=== PATIENT | male | born 1980 | race Caucasian/White ===

== ENCOUNTER 2017-02-28 04:36 | Emergency (ER) | payer OTHER ==
[~2017-02-28] VITALS: Ht 182.9 cm; Wt 122.8 kg
[~2017-02-28 04:36] MED LIST: IBUP-1050 PO
[2017-02-28 04:41] VITALS: TEMP 36.8; Ht 182.9 cm; Wt 122.8 kg
[2017-02-28] MEDS ORDERED: IBUPROFEN 600 MG TAB PO STA (05:06)
[2017-02-28] MEDS ORDERED: HYDROCODONE/ACETAMOPHEN 5/325MG TAB PO STA (05:06)
[2017-02-28 06:06] VITALS: BP 144/94; PULSE 73; O2SAT 94
--- NOTE | 2017-02-28 06:06 | EMERGENCY ROOM VISIT NOTE ---
History Report prepared by Jovitaibomkar: Jacob Mott Under the Supervision of: Dr. Oma Florian M.D. First contact with patient: 04:46 Chief Complaint: BACK PAIN Stated Complaint: STABBING PAIN IN MIDDLE OF BACK LASTING > 24 HRS History of Present Illness The patient is a 36 year old male who presents to the Emergency Room with complaints of worsening upper back pain beginning two days ago. He describes his pain as "stabbing". He has used a heating pad, cooling pad, and Ibuprofen for his symptoms but has seen no relief. The patient notes that he rode his bike to work recently for the first time in a long time. 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 He denies any shortness of breath. Source of History: patient Onset: Two days ago Position: back (upper) Quality: stabbing Timing: worsening Associated Symptoms: No SOB Review of Systems See HPI for pertinent positives & negatives. A total of 10 systems reviewed and were otherwise negative. Past Medical & Surgical Medical Problems: (1) Bipolar II disorder (2) Migraine (3) Pain, dental Family History Hypertension Social History Smoking Status: Former Smoker Alcohol Use: none Drug Use: none Marital Status: Housing Status: lives with significant other Occupation Status: unemployed Current/Historical Medications Scheduled PRN Ibuprofen (Advil), 800 MG PO TID PRN for Pain Allergies Coded Allergies: Onion (Verified Allergy, Severe, ANAPHYLAXIS, 02/28/17) Physical Exam Vital Signs Date Time Temp Pulse Resp B/P (MAP) Pulse Ox O2 Delivery O2 Flow Rate FiO2 02/28/17 06:06 73 18 144/94 94 Room Air 02/28/17 05:22 88 20 155/103 94 Room Air 02/28/17 04:41 36.8 81 20 177/106 97 Room Air Physical Exam Vital signs reviewed. General: Well-appearing male, in no significant distress. HEENT: No scleral icterus, PERRLA, neck supple. Atraumatic. Cardiovascular: Regular rate and rhythm, no extra sounds. Pulmonary: Clear to auscultation bilaterally, normal work of breathing. Abdomen: Soft, nontender, nondistended, positive bowel sounds. Musculoskeletal: Atraumatic, no peripheral edema. Mild tenderness to palpation over the mid-lower thoracic spine. No step off or deformity Neurologic: Patient awake alert and oriented x 3, full strength in all 4 extremities. Cranial nerves 2 through 12 grossly intact. Skin: Warm, dry, no rash Medical Decision & Procedures ER Provider Diagnostic Interpretation: Three View Thoracic Spine X-ray interpreted by me: No fracture. No malalignment. Medications Administered Medications (Trade) Dose Ordered Sig/Jacqueline Route Start Time Stop Time Status Last Admin Dose Admin Ibuprofen (Motrin Tab) 600 mg NOW STAT PO 02/28/17 05:06 02/28/17 05:08 DC 02/28/17 05:20 600 MG Acetaminophen/ Hydrocodone Bitart ([place] 5/325 Tab) 1 tab NOW STAT PO 02/28/17 05:06 02/28/17 05:08 DC 02/28/17 05:20 1 TAB ED Course 0456: Past medical records reviewed. The patient was evaluated in room B12B. A complete history and physical examination was performed. 0506: Ordered [place] 5/325 Tab PO, Motrin Tab 600 mg PO. 0600: Upon reevaluation, the patient appeared to have improvement of his symptoms. I discussed findings with him. He verbalized agreement of the treatment plan. The patient was discharged home. Medical Decision Differential diagnosis: Etiologies such as musculoskeletal, disc herniation, fracture, aortic disease, metastatic disease, cord compression, discitis, infection, renal colic, gastrointestinal, acute exacerbation of chronic back pain, sciatica, cauda equina, as well as others were entertained. This pt was evaluated and appeared to be in no distress. Pt was given po norco and ibuprofen. XR were performed and reveal no fx or malalignment. Pt was advised to use warm compresses and gentle stretching for relief. He will f/u with his PCP this week for reevaluation. Pt will return to the ED for worsening of symptoms or any medical concerns. Medication Reconcilliation Current Medication List: was personally reviewed by me Blood Pressure Screening Patient's blood pressure: Elevated blood pressure Blood pressure disposition: Referred to PCP Impression Primary Impression: Thoracic back pain Scribe Attestation The scribe's documentation has been prepared under my direction and personally reviewed by me in its entirety. I confirm that the note above accurately reflects all work, treatment, procedures, and medical decision making performed by me. Departure Information Dispostion Home / Self-Care Referrals No Doctor, Assigned (PCP) Forms HOME CARE DOCUMENTATION FORM, IMPORTANT VISIT INFORMATION Patient Instructions My [facility] Additional Instructions Diagnosis: Thoracic back pain Ibuprofen 600 mg every 6 hours as needed for pain with food. Warm compresses and gentle stretching. Follow up with your doctor this week for reevaluation. Return to the ED for worsening of symptoms or any medical concerns.
--- NOTE | 2017-02-28 07:26 | DIAGNOSTIC IMAGING REPORT ---
THORACIC SPINE 3 VIEWS HISTORY: thoracic back pain COMPARISON: None. FINDINGS: There is no fracture. No subluxation. Disc spaces are preserved. IMPRESSION: No fracture or subluxation within the thoracic spine. Electronically signed by: Timur Callejas M.D. 02/28/2017 7:25 AM Dictated Date/Time: 02/28/2017 7:22 AM
== END 2017-02-28 06:12 | disposition home or self-care (01) ==
LOC: C.EDB 04:38
DX: M54.6 Pain in thoracic spine (principal); F31.9 Bipolar disorder, unspecified; Z87.891 Personal history of nicotine dependence; Z91.018 Allergy to other foods; Z82.49 Family history of ischemic heart disease and other diseases of the circulatory system

== ENCOUNTER 2017-07-21 15:44 | Observation (INO) | payer OTHER ==
[~2017-07-21] VITALS: Ht 182.9 cm; Wt 120.2 kg
[2017-07-21] MEDS ORDERED: SODIUM CHLORIDE 0.9% 1000ML 1,000 ML IV STA (15:58)
[2017-07-21] MEDS ORDERED: OPTIRAY 320 IV PRN (16:15)
[2017-07-21 16:40] LABS: BASO % 0.3 %; BASO ABS # 0.02 K/uL (0-0.2); EOS % 0.8 %; EOS ABS # 0.05 K/uL (0-0.5); HEMATOCRIT 42.4 % (42-52); IG# 0.03 K/uL (0.00-0.02); LYMPH % 30.8 %; LYMPH ABS # 1.98 K/uL (1.2-3.4); MEAN CELL VOLUME 86.4 fL (80-100); MEAN CORPUSCULAR HEMOGLOBIN 30.5 pg (25-34); MEAN CORPUSCULAR HGB CONC 35.4 g/dl (32-36); MEAN PLATELET VOLUME 10.9 fL (7.4-10.4); MONO % 7.5 %; MONO ABS # 0.48 K/uL (0.11-0.59); NEUT % 60.1 %; NEUT ABS # 3.86 K/uL (1.4-6.5); PLATELET COUNT 224 K/uL (130-400); RED CELL DISTRIBUTION WIDTH CV 12.8 % (11.5-14.5); RED CELL DISTRIBUTION WIDTH SD 40.5 fL (36.4-46.3); WHITE BLOOD COUNT 6.42 K/uL (4.8-10.8)
[2017-07-21 16:55] LABS: PTT PATIENT 25.5 SECONDS (21.0-31.0)
[2017-07-21 17:01] LABS: ALBUMIN 3.6 gm/dl (3.4-5.0); CALCIUM 8.9 mg/dl (8.5-10.1); CREATININE 0.76 mg/dl (0.60-1.40); POTASSIUM 3.9 mmol/L (3.5-5.1)
[2017-07-21 17:07] LABS: TOTAL PROTEIN 7.1 gm/dl (6.4-8.2)
--- NOTE | 2017-07-21 17:45 | DIAGNOSTIC IMAGING REPORT ---
ABDOMEN AND PELVIS CT WITH IV CONTRAST CT DOSE: 1450.63 mGy.cm HISTORY: Acute generalized abdominal pain abd pain w/ GI bleed TECHNIQUE: Multiaxial CT images of the abdomen and pelvis were performed following the use of intravenous contrast. A dose lowering technique was utilized adhering to the principles of ALARA. COMPARISON STUDY: None. FINDINGS: Mild dependent bibasilar atelectasis. There is no pneumatosis or pneumoperitoneum. Imaged inferior cardiac chambers are unremarkable. Suspected fatty infiltration of the liver. No intrahepatic biliary ductal dilation. Spleen, gallbladder, pancreas and adrenal glands are within normal limits. 1.5 cm low attenuating lesion of the interpolar right kidney suggests benign renal cyst. No renal calculi or hydronephrosis. Ureters and urinary bladder are within normal limits. Aorta is normal in both course and caliber. No bulky adenopathy. There is no bowel obstruction. No mesenteric inflammatory stranding or ascites. There is nondistention involving the majority of the colon with areas of mild wall thickening, notably involving the transverse colon. The appendix appears normal. Soft tissues are unremarkable. The bones appear intact. IMPRESSION: 1. Mild wall thickening is noted throughout the colon, notably within the transverse segment which may reflect a mild colitis or may be secondary to nondistention. No bowel obstruction or significant inflammatory changes. 2. Normal appendix. Electronically signed by: Marshall Rg M.D. 07/21/2017 5:44 PM Dictated Date/Time: 07/21/2017 5:37 PM
[2017-07-21] MEDS ORDERED: MAGNESIUM HYDROXIDE SUSP 30 ML UDC PO PRN (18:30)
[2017-07-21] MEDS ORDERED: ACETAMINOPHEN 325 MG TAB PO PRN (18:30)
[2017-07-21] MEDS ORDERED: ONDANSETRON INJ 2 MG/ML 2 ML VIAL IV PRN (18:30)
[2017-07-21] MEDS ORDERED: ALUMINUM/MAGNESIUM/SIMETH (MAALOX MAX) 30 ML UDC PO PRN (18:30)
--- NOTE | 2017-07-21 18:44 | EMERGENCY ROOM VISIT NOTE ---
History Report prepared by Timi: Caron Holder Under the Supervision of: Dr. Byron Edmonds D.O. First contact with patient: 15:51 Chief Complaint: RECTAL BLEEDING Stated Complaint: BLOOD IN STOOL,STOMACH PAIN, HEAD ACHE History of Present Illness The patient is a 37 year old male who presents to the Emergency Room with complaints of persistent rectal bleeding starting 3 hours ago. The patient has had 4 bowel movements in the past 3 hours which turned the toilet bowl red with blood. He reports the bowel movements were mostly blood with only a small amount of stool. He estimates around 0.5 cup of blood per bowel movement. The stool itself with light green/brown. He has had some blood in his stool before, but never to this degree. He reports some pinching mid abdominal pain, nausea, and headache. He denies any dizziness, lightheadedness, chest pain, SOB, vomiting, or diarrhea. He is not on any blood thinners. He denies any previous abdominal surgeries. He denies any medical problems. He has not followed with GI before. Source of History: patient Onset: 3 hours ago Position: other (rectal) Quality: other (bleeding) Timing: other (persistent) Associated Symptoms: + headache, + nausea, + abdominal pain, No chest pain, No SOB, No vomiting, No diarrhea Note: Pt denies dizziness, lightheadedness. Review of Systems See HPI for pertinent positives & negatives. A total of 10 systems reviewed and were otherwise negative. Past Medical & Surgical Medical Problems: (1) Bipolar II disorder (2) Migraine (3) Pain, dental (4) Rectal bleeding Family History Hypertension Social History Smoking Status: Never Smoker Alcohol Use: none Drug Use: none Marital Status: Housing Status: lives with roommate Occupation Status: unemployed Current/Historical Medications Scheduled PRN Ibuprofen (Advil), 800 MG PO QID PRN for Pain Allergies Coded Allergies: Onion (Verified Allergy, Severe, ANAPHYLAXIS, 02/28/17) Physical Exam Vital Signs Date Time Temp Pulse Resp B/P (MAP) Pulse Ox O2 Delivery O2 Flow Rate FiO2 07/21/17 18:00 67 18 141/98 95 Room Air 07/21/17 17:43 91 24 129/101 96 Room Air 07/21/17 16:30 86 18 121/85 96 Room Air 07/21/17 16:17 79 07/21/17 16:04 93 Room Air 07/21/17 15:47 36.5 97 20 165/90 96 Room Air Physical Exam GENERAL: Sitting up in bed, alert, well appearing, well nourished, no distress, non-toxic EYE EXAM: normal conjunctiva. OROPHARYNX: no exudate, no erythema, lips, buccal mucosa, and tongue normal and mucous membranes are moist NECK: supple, no nuchal rigidity, no adenopathy, non-tender LUNGS: Clear to auscultation. Normal chest wall mechanics HEART: no murmurs, S1 normal and S2 normal ABDOMEN: abdomen soft, non-tender, normo-active bowel sounds, no masses, no rebound or guarding. BACK: Back is symmetrical on inspection and there is no deformity, no midline tenderness, no CVA tenderness. RECTAL: No external hemorrhoids. Grossly heme positive. SKIN: no rashes and no bruising UPPER EXTREMITIES: upper extremities are grossly normal. LOWER EXTREMITIES: No pitting edema. NEURO EXAM: Normal sensorium, cranial nerves II-XII grossly intact, normal speech, no gross weakness of arms, no gross weakness of legs. Medical Decision & Procedures ER Provider Diagnostic Interpretation: Radiology results as stated below per my review and the radiologist's interpretation: ABDOMEN AND PELVIS CT WITH IV CONTRAST CT DOSE: 1450.63 mGy.cm HISTORY: Acute generalized abdominal pain abd pain w/ GI bleed TECHNIQUE: Multiaxial CT images of the abdomen and pelvis were performed following the use of intravenous contrast. A dose lowering technique was utilized adhering to the principles of ALARA. COMPARISON STUDY: None. FINDINGS: Mild dependent bibasilar atelectasis. There is no pneumatosis or pneumoperitoneum. Imaged inferior cardiac chambers are unremarkable. Suspected fatty infiltration of the liver. No intrahepatic biliary ductal dilation. Spleen, gallbladder, pancreas and adrenal glands are within normal limits. 1.5 cm low attenuating lesion of the interpolar right kidney suggests benign renal cyst. No renal calculi or hydronephrosis. Ureters and urinary bladder are within normal limits. Aorta is normal in both course and caliber. No bulky adenopathy. There is no bowel obstruction. No mesenteric inflammatory stranding or ascites. There is nondistention involving the majority of the colon with areas of mild wall thickening, notably involving the transverse colon. The appendix appears normal. Soft tissues are unremarkable. The bones appear intact. IMPRESSION: 1. Mild wall thickening is noted throughout the colon, notably within the transverse segment which may reflect a mild colitis or may be secondary to nondistention. No bowel obstruction or significant inflammatory changes. 2. Normal appendix. Electronically signed by: Marshall Rg M.D. 07/21/2017 5:44 PM Dictated Date/Time: 07/21/2017 5:37 PM Laboratory Results 07/21/17 16:22 Red Blood Count 4.91, Mean Corpuscular Volume 86.4, Mean Corpuscular Hemoglobin 30.5, Mean Corpuscular Hemoglobin Concent 35.4, Mean Platelet Volume 10.9, Neutrophils (%) (Auto) 60.1, Lymphocytes (%) (Auto) 30.8, Monocytes (%) (Auto) 7.5, Eosinophils (%) (Auto) 0.8, Basophils (%) (Auto) 0.3, Neutrophils # (Auto) 3.86, Lymphocytes # (Auto) 1.98, Monocytes # (Auto) 0.48, Eosinophils # (Auto) 0.05, Basophils # (Auto) 0.02 07/21/17 16:22 Test 07/21/17 16:22 White Blood Count 6.42 K/uL (4.8-10.8) Red Blood Count 4.91 M/uL (4.7-6.1) Hemoglobin 15.0 g/dL (14.0-18.0) Hematocrit 42.4 % (42-52) Mean Corpuscular Volume 86.4 fL (80-100) Mean Corpuscular Hemoglobin 30.5 pg (25-34) Mean Corpuscular Hemoglobin Concent 35.4 g/dl (32-36) Platelet Count 224 K/uL (130-400) Mean Platelet Volume 10.9 fL (7.4-10.4) Neutrophils (%) (Auto) 60.1 % Lymphocytes (%) (Auto) 30.8 % Monocytes (%) (Auto) 7.5 % Eosinophils (%) (Auto) 0.8 % Basophils (%) (Auto) 0.3 % Neutrophils # (Auto) 3.86 K/uL (1.4-6.5) Lymphocytes # (Auto) 1.98 K/uL (1.2-3.4) Monocytes # (Auto) 0.48 K/uL (0.11-0.59) Eosinophils # (Auto) 0.05 K/uL (0-0.5) Basophils # (Auto) 0.02 K/uL (0-0.2) RDW Standard Deviation 40.5 fL (36.4-46.3) RDW Coefficient of Variation 12.8 % (11.5-14.5) Immature Granulocyte % (Auto) 0.5 % Immature Granulocyte # (Auto) 0.03 K/uL (0.00-0.02) Prothrombin Time 10.3 SECONDS (9.0-12.0) Prothromb Time International Ratio 1.0 (0.9-1.1) Activated Partial Thromboplast Time 25.5 SECONDS (21.0-31.0) Partial Thromboplastin Ratio 1.0 Anion Gap 9.0 mmol/L (3-11) Est Creatinine Clear Calc Drug Dose 176.4 ml/min Estimated GFR () 134.1 Estimated GFR (Non- 115.7 BUN/Creatinine Ratio 12.5 (10-20) Calcium Level 8.9 mg/dl (8.5-10.1) Total Bilirubin 0.8 mg/dl (0.2-1) Direct Bilirubin 0.2 mg/dl (0-0.2) Aspartate Amino Transf (AST/SGOT) 21 U/L (15-37) Alanine Aminotransferase (ALT/SGPT) 49 U/L (12-78) Alkaline Phosphatase 62 U/L (45-117) Total Protein 7.1 gm/dl (6.4-8.2) Albumin 3.6 gm/dl (3.4-5.0) Lipase 108 U/L (73-393) Laboratory results per my review. Medications Administered Medications (Trade) Dose Ordered Sig/Jacqueline Route Start Time Stop Time Status Last Admin Dose Admin Sodium Chloride 1,000 ml @ 999 mls/hr Q1H1M STAT IV 07/21/17 15:58 07/21/17 16:58 DC 07/21/17 16:46 999 MLS/HR ECG Indication: abdominal pain Rate (beats per minute): 79 Rhythm: normal sinus Findings: no ectopy, other (normal axis) Change: EKG per my interpretation. ED Course ED COURSE: Vital signs were reviewed and showed hypertension. The patients medical record was reviewed The above diagnostic studies were performed and reviewed. ED treatments and interventions as stated above. 1552: The patient was evaluated in room A11B. A complete history and physical examination was performed. 1558: NSS 1000 ml @ 999 mls/hr IV. 1808: I reevaluated the patient. He has had no further bloody bowel movements. 181: I discussed the patient's case with Dr. Alvarado, [facility]. We are in agreement with the plan. 1823: Upon reevaluation, the patient is stable. I discussed my findings with the patient and he understands and agrees with the treatment plan. Based on the patients age, coexisting illnesses, exam and lab findings the decision to treat as an inpatient was made. The patient remained stable while under my care. The patient will be evaluated for further management. 182: I reviewed the patient's [place]. [place], [facility] [place]. He will evaluate the patient for further management. Medical Decision Differential diagnoses includes but is not limited to gastritis, peptic ulcer disease, GERD, gallbladder disease, pancreatitis, small bowel obstruction, acute coronary syndrome, pericarditis, ischemic bowel, irritable bowel disease, irritable bowel syndrome, appendicitis, diverticulitis, malignancy, hernia, urinary tract infection, torsion, perforation, trauma, infectious. Patient is a 37-year-old male who presents to ER for bright red blood per rectum. He has had 3-4 episodes of passing about a half a cup to a cup of blood per rectum. This all started today. CBC all BMP, LFTs, bilirubin lipase is unremarkable. In go was 15. INR was normal. CT abdomen and pelvis shows colitis. Discussed with GI and they recommend performing a C. difficile. As he has had 3 bowel movements passing about a half a cup of bright red blood do favor this likely internal hemorrhoid as his BUN is not elevated. With that amount of blood and I did elect to watch him overnight after discussion with GI. Discussed with internal medicine. Medication Reconcilliation Current Medication List: was personally reviewed by me Blood Pressure Screening Patient's blood pressure: Elevated blood pressure Blood pressure disposition: Elevated BP felt to be situational Consults Time Called: 1809 Consulting Physician: Dr. Alvarado, [facility] Returned Call: [phone] I discussed the patient's case with him. We are in agreement with the plan. Additional Consults: Time Called: 1821 Consulted Physician: Dr. Travis, [facility] [place] Returned Call: [phone] Additional Comments: I reviewed the patient's case with him. He will evaluate the patient for further management. Impression Primary Impression: Lower GI bleed Scribe Attestation The scribe's documentation has been prepared under my direction and personally reviewed by me in its entirety. I confirm that the note above accurately reflects all work, treatment, procedures, and medical decision making performed by me. Departure Information Dispostion Being Evaluated By Hospitalist Referrals No Doctor, Assigned (PCP) Patient Instructions My [facility]
[2017-07-21] MEDS ORDERED: MoRPHine SULFATE 4 MG/ML 1 ML CARP\\VIAL IV PRN (18:45)
[2017-07-21] MEDS ORDERED: HydrALAZINE HCL 20 MG/ML VIAL IV PRN (18:45)
[2017-07-21] MEDS ORDERED: MoRPHine SULFATE 2 MG/ML CARP IV PRN (18:45)
--- NOTE | 2017-07-21 19:09 | History and Physical ---
History & Physical Date & Time of Service: Jul 21, 2017 at 18:35 Chief Complaint: Blood In Stool,Stomach Pain, Head Ache Primary Care Physician: No Doctor, Assigned History of Present Illness this pt awoke today around noon and had a blood tinged bowel movement. He has had occasoinal blood tinged bowel movements in the past. later when eating around 3 oclock he felt urgency to move his bowels, become sweaty, got a headache and develped lower abdominal pain that was crampy. he then had a few very bloody bowel movements that were bright red blood, he then came to the ER where this continued He has no other health issues at present, he did eat at a buffet 2 days ago where the chicken did not taste normal to him and he stopped eating it, but otherwise has been normal since until this evening Past Medical/Surgical History Medical Problems: (1) Bipolar II disorder Status: Chronic (2) Migraine Status: Resolved (3) Pain, dental Status: Resolved Family History Hypertension Social History Smoking Status: Never Smoker Drug Use: none Marital Status: Housing status: lives with family Occupational Status: unemployed Immunizations History of Influenza Vaccine: No History of Tetanus Vaccine?: Yes History of Pneumococcal: No History of Hepatitis B Vaccine: Yes Multi-Drug Resistant Organisms History of MDRO: No Allergies Coded Allergies: Onion (Verified Allergy, Severe, ANAPHYLAXIS, 02/28/17) Home Medications Scheduled PRN Ibuprofen (Advil), 800 MG PO QID PRN for Pain Review of Systems Constitutional: + chills, + sweats, No fever, No weakness, No fatigue Eyes: No worsening of vision, No eye pain Respiratory: No cough, No sputum, No wheezing, No shortness of breath Cardiovascular: No chest pain, No PND Abdomen: + pain, + diarrhea, + GI bleeding, No nausea, No vomiting, No constipation Musculoskeletal: No joint pain, No muscle pain, No swelling Genitourinary - Male: No hematuria, No dysuria Neurologic: No paralysis, No weakness, No numbness/tingling Psychiatric: No depression symptoms, No anhedonism Endocrine: No fatigue, No excessive thirst Hematologic / Lymphatic: No abnormal bleeding/bruising, No clotting problems Integumentary: No rash, No itch Allergic / Immunologic: No environmental allergies, No seasonal allergies Physical Exam Vital Signs Date Time Temp Pulse Resp B/P (MAP) Pulse Ox O2 Delivery O2 Flow Rate FiO2 07/21/17 18:00 67 18 141/98 95 Room Air 07/21/17 17:43 91 24 129/101 96 Room Air 07/21/17 16:30 86 18 121/85 96 Room Air 07/21/17 16:17 79 07/21/17 16:04 93 Room Air 07/21/17 15:47 36.5 97 20 165/90 96 Room Air General Appearance: WD/WN, + mild distress Head: normocephalic, atraumatic Eyes: normal inspection, PERRL, EOMI, sclerae normal ENT: hearing grossly normal, pharynx normal Neck: supple, no JVD Respiratory/Chest: chest non-tender, lungs clear, normal breath sounds Cardiovascular: regular rate, rhythm, no murmur Abdomen/GI: normal bowel sounds, soft, + tenderness (iin right lower quadrant but no pain to heel tap or no psoas sign, not acute abdomen), + guarding Back: no CVA tenderness, no muscle spasm, normal range of motion Extremities/Musculoskelatal: normal inspection, no calf tenderness Neurologic/Psych: alert, oriented x 3 Skin: normal color, warm/dry, no rash Diagnostics Laboratory Results Results Past 24 Hours Test 07/21/17 16:22 Range/Units White Blood Count 6.42 4.8-10.8 K/uL Red Blood Count 4.91 4.7-6.1 M/uL Hemoglobin 15.0 14.0-18.0 g/dL Hematocrit 42.4 42-52 % Mean Corpuscular Volume 86.4 80-100 fL Mean Corpuscular Hemoglobin 30.5 25-34 pg Mean Corpuscular Hemoglobin Concent 35.4 32-36 g/dl Platelet Count 224 130-400 K/uL Mean Platelet Volume 10.9 7.4-10.4 fL Neutrophils (%) (Auto) 60.1 % Lymphocytes (%) (Auto) 30.8 % Monocytes (%) (Auto) 7.5 % Eosinophils (%) (Auto) 0.8 % Basophils (%) (Auto) 0.3 % Neutrophils # (Auto) 3.86 1.4-6.5 K/uL Lymphocytes # (Auto) 1.98 1.2-3.4 K/uL Monocytes # (Auto) 0.48 0.11-0.59 K/uL Eosinophils # (Auto) 0.05 0-0.5 K/uL Basophils # (Auto) 0.02 0-0.2 K/uL RDW Standard Deviation 40.5 36.4-46.3 fL RDW Coefficient of Variation 12.8 11.5-14.5 % Immature Granulocyte % (Auto) 0.5 % Immature Granulocyte # (Auto) 0.03 0.00-0.02 K/uL Prothrombin Time 10.3 9.0-12.0 SECONDS Prothromb Time International Ratio 1.0 0.9-1.1 Activated Partial Thromboplast Time 25.5 21.0-31.0 SECONDS Partial Thromboplastin Ratio 1.0 Sodium Level 139 136-145 mmol/L Potassium Level 3.9 3.5-5.1 mmol/L Chloride Level 106 98-107 mmol/L Carbon Dioxide Level 24 21-32 mmol/L Anion Gap 9.0 3-11 mmol/L Blood Urea Nitrogen 10 7-18 mg/dl Creatinine 0.76 0.60-1.40 mg/dl Est Creatinine Clear Calc Drug Dose 176.4 ml/min Estimated GFR () 134.1 Estimated GFR (Non- 115.7 BUN/Creatinine Ratio 12.5 10-20 Random Glucose 95 70-99 mg/dl Calcium Level 8.9 8.5-10.1 mg/dl Total Bilirubin 0.8 0.2-1 mg/dl Direct Bilirubin 0.2 0-0.2 mg/dl Aspartate Amino Transf (AST/SGOT) 21 15-37 U/L Alanine Aminotransferase (ALT/SGPT) 49 12-78 U/L Alkaline Phosphatase 62 45-117 U/L Total Protein 7.1 6.4-8.2 gm/dl Albumin 3.6 3.4-5.0 gm/dl Lipase 108 73-393 U/L Diagnostic Radiology normal hgb CTabd pelvis no significant abnormality but possibly transverse colon colitis vs reynold distension Impression Assessment and Plan 37 M presents with abdominal pain shortly before admission and then developed bright red rectal bleeding, CT has question of transverse colitis but not confirmatory Rectal bleeding, given the fact that is it bright red will be most suggestive of lower gi bleed or internal hemorrhoidal bleeding, will check hgb at [facility] in [place], hydrate with ivf but baseline hgb is 15 so fairly safe distance to fall if bleeding rule out infectious causes and consult GI medicine in the morning right renal cyst noted DVT prevention is scd Level of Care Med/Surg VTE Prophylaxis VTE Risk Assessment Done? Y/N: Yes Risk Level: Moderate Given or contraindicated: Contraindicated
[2017-07-21] MEDS ORDERED: IV FLUIDS COMPLETED PRN (19:45)
[2017-07-21 20:00] VITALS: BP 153/95; PULSE 67; TEMP 36.7; O2SAT 95
[2017-07-21] MEDS: SODIUM CHLORIDE 0.9% 1000ML 1,000 ML IV SCH (21:33)
[2017-07-21 22:26] VITALS: BP 153/95; PULSE 67; TEMP 36.7; O2SAT 95; Ht 182.9 cm; Wt 120.2 kg
[2017-07-21 23:23] VITALS: BP 141/90; PULSE 62; TEMP 36.7; O2SAT 96
[2017-07-22 00:50] LABS: HEMATOCRIT 42.1 % (42-52); HEMOGLOBIN 15.1 g/dL (14.0-18.0)
[2017-07-22] MEDS: SODIUM CHLORIDE 0.9% 1000ML 1,000 ML IV SCH (06:39)
[2017-07-22 06:51] LABS: HEMATOCRIT 39.3 % (42-52); HEMOGLOBIN 14.6 g/dL (14.0-18.0); MEAN CELL VOLUME 86.8 fL (80-100); MEAN CORPUSCULAR HEMOGLOBIN 32.2 pg (25-34); MEAN CORPUSCULAR HGB CONC 37.2 g/dl (32-36); MEAN PLATELET VOLUME 10.6 fL (7.4-10.4); PLATELET COUNT 180 K/uL (130-400); RED CELL DISTRIBUTION WIDTH CV 12.9 % (11.5-14.5); RED CELL DISTRIBUTION WIDTH SD 40.9 fL (36.4-46.3); WHITE BLOOD COUNT 7.11 K/uL (4.8-10.8)
[2017-07-22 07:23] VITALS: BP 151/95; PULSE 71; TEMP 36.5; O2SAT 97
[2017-07-22 07:23] LABS: CALCIUM 8.3 mg/dl (8.5-10.1); CREATININE 0.81 mg/dl (0.60-1.40); POTASSIUM 3.6 mmol/L (3.5-5.1)
[2017-07-22 08:00] VITALS: O2SAT 97
--- NOTE | 2017-07-22 11:46 | Gastrointestinal Consultation ---
Gastrointestinal Consultation Date of Consultation: Jul 22, 2017 Attending Physician: Armond Alvarado Reason for Consultation: Rectal bleeding History of Present Illness Patient is a 37 year old male with no medical comorbids, presented to the hospital with bright red bleeding per rectum that started yesterday. Had one episode initially and followed by normal colored stool then few more episodes of bright red blood. He denies any abdominal pain, nausea or vomiting, no diarrhea or constipation, no bleeding in the past. No weight loss. No prior colonoscopy. CT scan unremarkable except for mild thickening in transverse colon ?nondistension. In the hospital he had no further episodes of bleeding, feels hungry. Past Medical/Surgical History Medical Problems: (1) Dental caries Status: Acute (2) Dentalgia Status: Acute (3) Lower GI bleed Status: Acute (4) Thoracic back pain Status: Acute Past Medical History: None Past Surgical History: None Family History Hypertension Social History Smoking Status: Current Some Day Smoker Alcohol Use: none Drug Use: none Marital Status: Housing Status: lives with roommate Occupation Status: unemployed Allergies Coded Allergies: Onion (Verified Allergy, Severe, ANAPHYLAXIS, 02/28/17) Current Medications Home Meds and Scripts Medications Dose Route/Sig Max Daily Dose Days Date Category Advil (Ibuprofen) 200 Mg Tab 800 Mg PO QID PRN 03/09/11 Reported Review of Systems Constitutional: No fever, No chills Eyes: No worsening of vision, No eye pain ENT: No hearing loss, No unusual epistaxis Respiratory: No cough, No sputum Cardiac: No chest pain, No orthopnea Abdomen: + see HPI Musculoskeletal: No joint pain, No muscle pain Male : No dysuria, No urinary frequency Psych: No depression symptoms, No anxiety Heme: No abnormal bleeding/bruising, No clotting problems Endo: No fatigue Skin: No rash, No itch Physical Exam Date Time Temp Pulse Resp B/P (MAP) Pulse Ox O2 Delivery O2 Flow Rate FiO2 07/22/17 08:00 97 Room Air 07/22/17 07:23 36.5 71 18 151/95 (113) 97 Room Air 07/22/17 00:32 Room Air 07/21/17 23:23 36.7 62 18 141/90 (107) 96 Room Air 07/21/17 22:26 36.7 67 20 153/95 95 Room Air 07/21/17 20:00 36.7 67 20 153/95 (114) 95 Room Air 07/21/17 19:46 63 22 141/89 93 07/21/17 19:00 68 24 144/94 95 Room Air 07/21/17 18:30 73 23 154/97 96 Room Air 07/21/17 18:00 67 18 141/98 95 Room Air 07/21/17 17:43 91 24 129/101 96 Room Air 07/21/17 16:30 86 18 121/85 96 Room Air 07/21/17 16:17 79 07/21/17 16:04 93 Room Air 07/21/17 15:47 36.5 97 20 165/90 96 Room Air General Appearance: no apparent distress Eyes: PERRL, EOMI ENT: normal ENT inspection Neck: supple, no JVD Respiratory/Chest: lungs clear, normal breath sounds Cardiovascular: regular rate, rhythm, no edema Abdomen: normal bowel sounds, non tender, soft Neurologic/Psych: alert, oriented x 3 Rectal exam: small hemorrhoids, no fissure, empty vault, no gross blood. Laboratory Results Last 24 Hours Test 07/21/17 16:22 07/21/17 21:40 07/22/17 00:14 07/22/17 06:36 White Blood Count 6.42 K/uL 7.11 K/uL Red Blood Count 4.91 M/uL 4.53 M/uL Hemoglobin 15.0 g/dL 15.1 g/dL 14.6 g/dL Hematocrit 42.4 % 42.1 % 39.3 % Mean Corpuscular Volume 86.4 fL 86.8 fL Mean Corpuscular Hemoglobin 30.5 pg 32.2 pg Mean Corpuscular Hemoglobin Concent 35.4 g/dl 37.2 g/dl Platelet Count 224 K/uL 180 K/uL Mean Platelet Volume 10.9 fL 10.6 fL Neutrophils (%) (Auto) 60.1 % Lymphocytes (%) (Auto) 30.8 % Monocytes (%) (Auto) 7.5 % Eosinophils (%) (Auto) 0.8 % Basophils (%) (Auto) 0.3 % Neutrophils # (Auto) 3.86 K/uL Lymphocytes # (Auto) 1.98 K/uL Monocytes # (Auto) 0.48 K/uL Eosinophils # (Auto) 0.05 K/uL Basophils # (Auto) 0.02 K/uL RDW Standard Deviation 40.5 fL 40.9 fL RDW Coefficient of Variation 12.8 % 12.9 % Immature Granulocyte % (Auto) 0.5 % Immature Granulocyte # (Auto) 0.03 K/uL Prothrombin Time 10.3 SECONDS Prothromb Time International Ratio 1.0 Activated Partial Thromboplast Time 25.5 SECONDS Partial Thromboplastin Ratio 1.0 Sodium Level 139 mmol/L 139 mmol/L Potassium Level 3.9 mmol/L 3.6 mmol/L Chloride Level 106 mmol/L 107 mmol/L Carbon Dioxide Level 24 mmol/L 28 mmol/L Anion Gap 9.0 mmol/L 4.0 mmol/L Blood Urea Nitrogen 10 mg/dl 9 mg/dl Creatinine 0.76 mg/dl 0.81 mg/dl Est Creatinine Clear Calc Drug Dose 176.4 ml/min 165.5 ml/min Estimated GFR () 134.1 130.7 Estimated GFR (Non- 115.7 112.7 BUN/Creatinine Ratio 12.5 10.7 Random Glucose 95 mg/dl 85 mg/dl Calcium Level 8.9 mg/dl 8.3 mg/dl Total Bilirubin 0.8 mg/dl Direct Bilirubin 0.2 mg/dl Aspartate Amino Transf (AST/SGOT) 21 U/L Alanine Aminotransferase (ALT/SGPT) 49 U/L Alkaline Phosphatase 62 U/L Total Protein 7.1 gm/dl Albumin 3.6 gm/dl Lipase 108 U/L Urine Color YELLOW Urine Appearance CLEAR Urine pH 7.0 Urine Specific [place] > 1.045 Urine Protein NEG Urine Glucose (UA) NEG Urine Ketones NEG Urine Occult Blood NEG Urine Nitrite NEG Urine Bilirubin NEG Urine Urobilinogen POS Urine Leukocyte Esterase NEG Magnesium Level 2.2 mg/dl Impression Patient is a 37 year old male with no medical comorbids, presented with painless bright red bleeding per rectum, no abdominal pain or diarrhea. CT scan no gross findings. Rectal exam with no gross blood. Hgb is stable with no anemia , repeat remains normal today. Impression: Likely hemorrhoidal but need to r/o Other etiologies like IBD, Polyp or malignancy. No overt bleeding now or anemia. No clinical evidence of infectious colitis. Plan Needs colonoscopy, can be done electively, will arrange as outpatient within the next week. Can discharge with hemorrhoidal suppositories. Please recall GI if any questions, will sign off.
[2017-07-22] MEDS ORDERED: NURSING VERBAL MED ORDER ONE (12:00)
[2017-07-22] MEDS ORDERED: HYDROCORTISONE HC 2.5% CRM 30GM TUBE EXT PRN (12:15)
[2017-07-22] MEDS ORDERED: HYDROCORTISONE ACETATE 25 MG SUPP PR PRN (12:15)
--- NOTE | 2017-07-22 12:38 | Discharge Instructions ---
Discharge Instructions Date of Service Jul 22, 2017. Admission Reason for Admission: Rectal Bleeding Discharge Discharge Diagnosis / Problem: rectal bleed Discharge Goals Goal(s): Decrease discomfort, Improve disease control, Improve nutritional status, Learn about illness, Diagnostic testing Activity Recommendations Activity Limitations: resume your previous activity . Current Hospital Diet Patient's current hospital diet: Discharge Diet Recommended Diet: Regular Diet Pending Studies Studies pending at discharge: no Medical Emergencies . Who to Call and When: Medical Emergencies: If at any time you feel your situation is an emergency, please call 911 immediately. . Non-Emergent Contact Non-Emergency issues call your: Primary Care Provider Call Non-Emergent contact if: you have any medication questions . . "Provider Documentation" section prepared by Jamila Sinha . VTE Core Measure Inpt VTE Proph given/why not?: Contraindicated
[2017-07-22 12:42] VITALS: BP 151/95; PULSE 71; TEMP 36.5; O2SAT 97
--- NOTE | 2017-07-22 12:45 | Discharge Summary ---
Discharge Summary Date of Service Jul 22, 2017. Discharge Summary Admission Date: Jul 21, 2017 at 18:33 Discharge Date: Jul 22, 2017 Discharge Disposition: Home Principal Diagnosis: Rectal blled Immunizations: Have You Had Influenza Vaccine: No History of Tetanus Vaccine?: Yes History of Pneumococcal: No History of Hepatitis B Vaccine: Yes Consultations: GI Discharge Exam Review of Systems: Constitutional: No fever, No chills, No sweats, No weight loss, No weakness , No fatigue Eyes: No worsening of vision, No redness, No discharge Respiratory: No cough, No sputum, No wheezing, No shortness of breath, No dyspnea on exertion, No dyspnea at rest Cardiovascular: No chest pain, No edema, No claudication Abdomen: No pain, No nausea, No vomiting, No diarrhea, No constipation, No GI bleeding Musculoskeletal: No joint pain, No swelling, No calf pain Neurologic: No memory loss, No paralysis, No numbness/tingling, No vertigo, No balance problems, No problem reported Psychiatric: No depression symptoms Endocrine: No fatigue, No excessive thirst Hematologic / Lymphatic: No clotting problems Integumentary: No rash Physical Exam: General Appearance: WD/WN, no apparent distress Eyes: normal inspection, EOMI Neck: supple, no adenopathy Respiratory/Chest: lungs clear, normal breath sounds, no respiratory distress Cardiovascular: regular rate, rhythm, no edema, no JVD, no murmur Abdomen / GI: normal bowel sounds, non tender, soft, no organomegaly, no pulsatile mass Extremities: normal inspection, no calf tenderness, no pedal edema, normal range of motion Neurologic/Psychiatric: alert, normal mood/affect, normal reflexes, oriented x 3 Skin: warm/dry, no rash Lymphatic: no adenopathy Hospital Course Patient is a 37 year old male with no medical comorbids, presented with painless bright red bleeding per rectum, no abdominal pain or diarrhea. CT scan no gross findings. Rectal exam with no gross blood. Hgb is stable with no anemia , repeat remains normal today.GI consulted and per there recommendation. Likely hemorrhoidal but need to r/o Other etiologies like IBD, Polyp or malignancy. No overt bleeding now or anemia. No clinical evidence of infectious colitis. Plan Needs colonoscopy, can be done electively, will arrange as outpatient within the next week. Can discharge with hemorrhoidal suppositories.Advise patient Hemorrhoidal supp are over the counter at [facility]. Advise to have PCP. Total Time Spent: Greater than 30 minutes This includes examination of the patient, discharge planning, medication reconciliation, and communication with other providers. Discharge Instructions Please refer to the electronic Patient Visit Report (Discharge Instructions) for additional information. Follow-Up As per GI
== END 2017-07-22 14:01 | disposition home or self-care (01) ==
LOC: C.EDB 15:46 → C.4E 18:33 → ENRESERV 19:27
PROVIDERS: ADMIT Internal Medicine; ATTEND Internal Medicine
DX: K62.5 Hemorrhage of anus and rectum (principal); R03.0 Elevated blood-pressure reading, without diagnosis of hypertension; F17.200 Nicotine dependence, unspecified, uncomplicated; F31.81 Bipolar II disorder; K02.9 Dental caries, unspecified; Z82.49 Family history of ischemic heart disease and other diseases of the circulatory system

== ENCOUNTER 2017-08-29 19:11 | Emergency (ER) | payer SELFPAY ==
[~2017-08-29] VITALS: Ht 182.9 cm; Wt 121.5 kg
[2017-08-29 19:14] VITALS: Ht 182.9 cm; Wt 121.5 kg
--- NOTE | 2017-08-29 19:23 | EMERGENCY ROOM VISIT NOTE ---
History Report prepared by Timi: Halina Sellers Under the Supervision of: Dr. Uzair Felix M.D. First contact with patient: 19:19 Chief Complaint: FLU LIKE SX Stated Complaint: CHEST CONGESTION, VOMITING, FEVER History of Present Illness The patient is a 37 year old male who presents to the Emergency Room with complaints of persistent flu like symptoms that began a few days ago. He states that he has been experiencing chest congestion, vomiting, some diarrhea, coughing up green/yellow sputum, and fevers. The patient states that was he feeling better today, noting that he decided to go to work. On his ride home from work, the patient states that he began to feel warm again and when he got home, he noticed he had a fever of 102.7 degrees Fahrenheit. He reports that he took off all his clothes, laid in bed, and took Robitussin. The patient states that he currently feels nauseated when he coughs. He denies any pain with urination. He reports that he currently does not have medical insurance, noting that has been unable to take medication for his bipolar II disorder or see a primary care physician. Source of History: patient Onset: a few days ago Position: other (global) Quality: other (fever) Timing: other (persistent) Associated Symptoms: + cough (coughing up green/yellow sputum), + vomiting, + diarrhea (some) Note: Associated symptoms includes: chest congestion, vomiting, some diarrhea, coughing up green/yellow sputum Review of Systems See HPI for pertinent positives and negatives. A total of ten systems were reviewed and were otherwise negative. Past Medical & Surgical Medical Problems: (1) Bipolar II disorder (2) Migraine (3) Pain, dental (4) Rectal bleeding Family History Hypertension Social History Smoking Status: Never Smoker Smokeless Tobacco Use: No Alcohol Use: none Drug Use: none Marital Status: Housing Status: lives with roommate Occupation Status: unemployed Current/Historical Medications Scheduled Oseltamivir Phosphate (Tamiflu), 75 MG PO BID Scheduled PRN [Suphedrine], 1 DOSE PO UD PRN for Cold/Sinus Symptoms Allergies Coded Allergies: Onion (Verified Allergy, Severe, ANAPHYLAXIS, 02/28/17) Physical Exam Vital Signs Date Time Temp Pulse Resp B/P (MAP) Pulse Ox O2 Delivery O2 Flow Rate FiO2 08/30/17 00:06 104 20 142/95 97 08/29/17 23:02 108 16 139/83 98 Room Air 08/29/17 21:48 37.3 125 16 92 Room Air 08/29/17 21:26 37.4 135 22 138/92 95 Room Air 08/29/17 20:51 142 08/29/17 20:07 99 Room Air 08/29/17 19:14 38.8 132 18 162/95 94 Room Air Physical Exam GENERAL: Awake, alert, uncomfortable-appearing, but in no distress HENT: Boggy nasal turbinates. Normocephalic, atraumatic. Oropharynx with dry cracked mucous membranes and otherwise unremarkable. EYES: Normal conjunctiva. Sclera non-icteric. NECK: Supple. No nuchal rigidity. FROM. No JVD. RESPIRATORY: Course upper airway congestion, but lungs are clear. CARDIAC: ST. Extremities warm and well perfused. Pulses equal. ABDOMEN: Soft, non-distended. No tenderness to palpation. No rebound or guarding. No masses. RECTAL: Deferred. MUSCULOSKELETAL: Chest examination reveals no tenderness. The back is symmetrical on inspection without obvious abnormality. There is no CVA tenderness to palpation. No joint edema. LOWER EXTREMITIES: Calves are equal size bilaterally and non-tender. No edema. No discoloration. NEURO: Normal sensorium. No sensory or motor deficits noted. SKIN: No rash or jaundice noted. Medical Decision & Procedures ER Provider Diagnostic Interpretation: X-ray: Per my interpretation, radiologist review. CHEST ONE VIEW PORTABLE CLINICAL HISTORY: Chest pain, fever and vomiting. COMPARISON STUDY: Chest radiograph December 07, 2006. FINDINGS: Lung volumes are normal. No pneumothorax or pleural effusion is noted. Patient is mildly rotated. Cardiomediastinal silhouette is stable. There is no evidence for pulmonary edema. There is no consolidation. IMPRESSION: No acute cardiopulmonary findings. Electronically signed by: Bipin Burch M.D. 08/29/2017 7:52 PM Dictated Date/Time: 08/29/2017 7:51 PM Laboratory Results 08/29/17 20:00 Red Blood Count 5.05, Mean Corpuscular Volume 87.5, Mean Corpuscular Hemoglobin 31.1, Mean Corpuscular Hemoglobin Concent 35.5, Mean Platelet Volume 10.8, Neutrophils (%) (Auto) 78.0, Lymphocytes (%) (Auto) 12.3, Monocytes (%) (Auto) 9.3, Eosinophils (%) (Auto) 0.0, Basophils (%) (Auto) 0.0, Neutrophils # (Auto) 3.69, Lymphocytes # (Auto) 0.58, Monocytes # (Auto) 0.44, Eosinophils # (Auto) 0.00, Basophils # (Auto) 0.00 08/29/17 20:00 Test 08/29/17 20:00 White Blood Count 4.73 K/uL (4.8-10.8) Red Blood Count 5.05 M/uL (4.7-6.1) Hemoglobin 15.7 g/dL (14.0-18.0) Hematocrit 44.2 % (42-52) Mean Corpuscular Volume 87.5 fL (80-100) Mean Corpuscular Hemoglobin 31.1 pg (25-34) Mean Corpuscular Hemoglobin Concent 35.5 g/dl (32-36) Platelet Count 175 K/uL (130-400) Mean Platelet Volume 10.8 fL (7.4-10.4) Neutrophils (%) (Auto) 78.0 % Lymphocytes (%) (Auto) 12.3 % Monocytes (%) (Auto) 9.3 % Eosinophils (%) (Auto) 0.0 % Basophils (%) (Auto) 0.0 % Neutrophils # (Auto) 3.69 K/uL (1.4-6.5) Lymphocytes # (Auto) 0.58 K/uL (1.2-3.4) Monocytes # (Auto) 0.44 K/uL (0.11-0.59) Eosinophils # (Auto) 0.00 K/uL (0-0.5) Basophils # (Auto) 0.00 K/uL (0-0.2) RDW Standard Deviation 42.2 fL (36.4-46.3) RDW Coefficient of Variation 13.4 % (11.5-14.5) Immature Granulocyte % (Auto) 0.4 % Immature Granulocyte # (Auto) 0.02 K/uL (0.00-0.02) Anion Gap 7.0 mmol/L (3-11) Est Creatinine Clear Calc Drug Dose 122.6 ml/min Estimated GFR () 98.2 Estimated GFR (Non- 84.7 BUN/Creatinine Ratio 12.3 (10-20) Calcium Level 8.5 mg/dl (8.5-10.1) Total Bilirubin 0.4 mg/dl (0.2-1) Direct Bilirubin < 0.1 mg/dl (0-0.2) Aspartate Amino Transf (AST/SGOT) 33 U/L (15-37) Alanine Aminotransferase (ALT/SGPT) 57 U/L (12-78) Alkaline Phosphatase 79 U/L (45-117) Total Protein 8.0 gm/dl (6.4-8.2) Albumin 3.7 gm/dl (3.4-5.0) Lipase 120 U/L (73-393) Influenza Type A Antigen Neg for Influ A (NEG) Influenza Type B Antigen POS for Influ B (NEG) Laboratory results reviewed by me Medications Administered Medications (Trade) Dose Ordered Sig/Jacqueline Route Start Time Stop Time Status Last Admin Dose Admin Sodium Chloride 2,000 ml @ 999 mls/hr Q2H1M STAT IV 08/29/17 19:29 08/29/17 21:29 DC 08/29/17 19:58 999 MLS/HR Albuterol/ Ipratropium (Duoneb) 12 ml ONE ONCE INH 08/29/17 19:30 08/29/17 19:33 DC 08/29/17 20:00 12 ML Guaifenesin (Mucinex Contr Rel Tab) 600 mg NOW STAT PO 08/29/17 19:29 08/29/17 19:33 DC 08/29/17 20:05 600 MG Sodium Chloride ([place] Nasal [place]) 2 sprays NOW ONCE NA 08/29/17 19:30 08/29/17 19:33 DC 08/29/17 19:59 2 SPRAYS Acetaminophen (Tylenol Tab) 1,000 mg NOW STAT PO 08/29/17 19:29 08/29/17 19:33 DC 08/29/17 19:59 1,000 MG Ketorolac Tromethamine (Toradol Inj) 15 mg NOW STAT IV 08/29/17 19:29 08/29/17 19:33 DC 08/29/17 19:58 15 MG Oseltamivir Phosphate (Tamiflu Cap) 75 mg NOW STAT PO 08/29/17 20:42 08/29/17 20:43 DC 08/29/17 20:48 75 MG Sodium Chloride 1,000 ml @ 999 mls/hr Q1H1M STAT IV 08/29/17 22:33 08/29/17 23:33 DC 08/29/17 23:03 999 MLS/HR Albuterol (Ventolin Hfa Inhaler) 2 puffs NOW STAT INH 08/29/17 23:29 08/29/17 23:33 DC 08/30/17 00:02 2 PUFFS ECG Per My Interpretation Indication: other (chest congestion) Rate (beats per minute): 130 Rhythm: sinus tachycardia Findings: no acute ischemic change, other (normal axis) ED Course 1937: The patient was evaluated in room A7. A complete history and physical exam was performed. 2145: I reevaluated the patient, who was resting comfortably. He states that he is feeling significantly better. I discussed test findings. 2248: I reevaluated the patient. Discussed results and discharge instructions: he verbalized understanding and agreement. The patient is ready for discharge. Medical Decision I reviewed the patient's past medical history, medications, and the nursing notes as described above. The patient's presentation and history were concerning for upper respiratory infection, viral illness, influenza, pneumonia, bronchitis, electroplate abnormalities. The patient is a 37-year-old gentleman who presents emergency Department with worsening cough congestion and fevers for the past few days per hpi. Arrival the patient is uncomfortable but no acute distress, febrile to 38.8, HR 130s but VS otherwise stable. On exam, patient appears clinically dry with evident nasal congestion. Has upper airway congestion but lungs are otherwise clear. Influenza B positive. WBC 4.7 c/w viral illness. Labs otherwise unremarkable. CXR negative. Sx improved with nebs, saline nasal spray, Mucinex. HR improved to 100s with IVF. Given Tamiflu and MDI with spacer. Findings and plan for follow-up reviewed with patient. Patient agreeable and d/c'd per discharge instructions. Medication Reconcilliation Current Medication List: was personally reviewed by me Blood Pressure Screening Patient's blood pressure: Normal blood pressure Blood pressure disposition: Did not require urgent referral Impression Primary Impression: Influenza B Scribe Attestation The scribe's documentation has been prepared under my direction and personally reviewed by me in its entirety. I confirm that the note above accurately reflects all work, treatment, procedures, and medical decision making performed by me. Departure Information Dispostion Home / Self-Care Prescriptions Oseltamivir Phosphate (Tamiflu) 75 Mg Cap 75 MG PO BID, #10 CAP Prov: Uzair Felix M.D. 08/29/17 Referrals No Doctor, Assigned (PCP) Forms HOME CARE DOCUMENTATION FORM, IMPORTANT VISIT INFORMATION Patient Instructions ED Flu, My [facility] Additional Instructions Please follow up with your primary care physician in the next 1-3 days for re- evaluation. You were found to have the flu. Otherwise, your exam, EKG, chest xray, and lab results did not show signs of an emergent condition at this time. Acetaminophen or ibuprofen for pain and fevers as needed. Tamiflu as directed. Saline nasal spray and Mucinex as needed to help thin and clear mucus. Albuterol inhaler 2 puffs every 4 hours as needed for cough. Drink plenty of fluids to ensure hydration. Return to the emergency department for worsening symptoms as described in the accompanying instructions.
[2017-08-29] MEDS ORDERED: KETOROLAC TROMETHAMINE 30 MG/ML VIAL IV STA (19:29)
[2017-08-29] MEDS ORDERED: ACETAMINOPHEN 500 MG TAB PO STA (19:29)
[2017-08-29] MEDS ORDERED: SODIUM CHLORIDE 0.9% 1000ML 2,000 ML IV STA (19:29)
[2017-08-29] MEDS ORDERED: GUAIFENESIN 600 MG TABCR PO STA (19:29)
[2017-08-29] MEDS ORDERED: SODIUM CHLORIDE 0.65% NA SOLN 45 ML (OCEAN) ONE (19:30)
[2017-08-29] MEDS ORDERED: ALBUT/IPRATROP 3MG/0.5MG NEB 3 ML VIAL INH ONE (19:30)
--- NOTE | 2017-08-29 19:53 | DIAGNOSTIC IMAGING REPORT ---
CHEST ONE VIEW PORTABLE CLINICAL HISTORY: Chest pain, fever and vomiting. COMPARISON STUDY: Chest radiograph December 07, 2006. FINDINGS: Lung volumes are normal. No pneumothorax or pleural effusion is noted. Patient is mildly rotated. Cardiomediastinal silhouette is stable. There is no evidence for pulmonary edema. There is no consolidation. IMPRESSION: No acute cardiopulmonary findings. Electronically signed by: Bipin Burch M.D. 08/29/2017 7:52 PM Dictated Date/Time: 08/29/2017 7:51 PM
[2017-08-29 20:07] VITALS: O2SAT 99
[2017-08-29 20:15] LABS: HEMATOCRIT 44.2 % (42-52); HEMOGLOBIN 15.7 g/dL (14.0-18.0); IG# 0.02 K/uL (0.00-0.02); LYMPH % 12.3 %; LYMPH ABS # 0.58 K/uL (1.2-3.4); MEAN CELL VOLUME 87.5 fL (80-100); MEAN CORPUSCULAR HEMOGLOBIN 31.1 pg (25-34); MEAN CORPUSCULAR HGB CONC 35.5 g/dl (32-36); MEAN PLATELET VOLUME 10.8 fL (7.4-10.4); MONO % 9.3 %; MONO ABS # 0.44 K/uL (0.11-0.59); NEUT ABS # 3.69 K/uL (1.4-6.5); PLATELET COUNT 175 K/uL (130-400); RED CELL DISTRIBUTION WIDTH CV 13.4 % (11.5-14.5); RED CELL DISTRIBUTION WIDTH SD 42.2 fL (36.4-46.3); WHITE BLOOD COUNT 4.73 K/uL (4.8-10.8)
[2017-08-29] MEDS ORDERED: SUPHEDRINE PO (20:22)
[2017-08-29 20:40] LABS: INFLUENZA B ANTIGEN POS for Influ B (NEG)
[2017-08-29] MEDS ORDERED: OSELTAMIVIR PHOSPHATE 75 MG CAP PO STA (20:42)
[2017-08-29 20:43] LABS: ALBUMIN 3.7 gm/dl (3.4-5.0); ALT/SGPT 57 U/L (12-78); BLOOD UREA NITROGEN 14 mg/dl (7-18); CALCIUM 8.5 mg/dl (8.5-10.1); CARBON DIOXIDE 24 mmol/L (21-32); GLUCOSE 103 mg/dl (70-99); LIPASE 120 U/L (73-393); SODIUM 136 mmol/L (136-145)
[2017-08-29 20:46] LABS: ALKALINE PHOSPHATASE 79 U/L (45-117); AST/SGOT 33 U/L (15-37)
[2017-08-29 21:48] VITALS: TEMP 37.3
[2017-08-29] MEDS ORDERED: SODIUM CHLORIDE 0.9% 1000ML 1,000 ML IV STA (22:33)
[2017-08-29] MEDS ORDERED: OSEL75CA23 PO (23:29)
[2017-08-29] MEDS ORDERED: ALBUTEROL HFA 8 GM INHALER INH STA (23:29)
[2017-08-30 00:06] VITALS: BP 142/95; PULSE 104; O2SAT 97
== END 2017-08-30 00:06 | disposition home or self-care (01) ==
LOC: C.EDB 19:14 → C.EDA 08-30 00:06
DX: J10.1 Influenza due to other identified influenza virus with other respiratory manifestations (principal); F31.81 Bipolar II disorder; Z82.49 Family history of ischemic heart disease and other diseases of the circulatory system; Z91.018 Allergy to other foods

== ENCOUNTER 2020-01-13 12:42 | Inpatient (IN) ==
--- OUTSIDE RECORDS SUMMARY | 2020-01-13 12:45 | External Medical Summary | Continuity of Care Document ---
:1980 Author Name Pedro Eagle Address Unavailable Unavailable , Care Team Providers Name Role Phone Fallon Eagle Unavailable [email or web address] ALONDRA LUQUE M.D., V Unavailable Unavailab le Unavailable Unavailable Unavailable Problems Essential hypertriglyceridemia (272.1) (E78.1) Bipolar I disorder, single manic episode (296.00) (F30.9) Asthma (493.90) (J45.909) Depression (311) (F32.9) Obesity (278.00) (E66.9) Motion sickness (994.6) (T75.3XXA) Allergies and Adverse Reactions No Known Drug Allergies (Allergy) Medications Wellbutrin XL 300 MG Oral Tablet Extended Release 24 Hour; T justen 1 tablet daily Start: 04-May-2012 Refills: 0 Meclizine HCl - 25 MG Oral Tablet; TAKE 1 TABLET 3 SHAAN ES DAILY NEEDED. Shagufta Lehman Start: 04-May-2012 Quantity: 30 Ralitsa Refills: 0 Procedures Procedures not documented Immunizations Tdap (Boostrix) On: Jan-2012 GLAXO FRANKLIN FLOWER Family History Unknown Family Member Family history of Essential Hypertension Status: Active Comments: Family History Social History - Smoking Status Ex-smoker Plan of Treatment Planned Observations Planned Goals not documented Results No Known Results Results not documented
--- OUTSIDE RECORDS SUMMARY | 2020-01-13 12:45 | External Medical Summary | Continuity of Care Document ---
:1980 Author Name Pedro Eagle Address Unavailable Unavailable , Care Team Providers Name Role Phone Fallon Eagle Unavailable [email or web address] ALONDRA LUQUE M.D., V Unavailable Unavailab le Unavailable Unavailable Unavailable Problems Motion sickness (994.6) (T75.3XXA) Obesity (278.00) (E66.9) Depression (311) (F32.9) Asthma (493.90) (J45.909) Bipolar I disorder, single manic episode (296.00) (F30.9) Essential hypertriglyceridemia (272.1) (E78.1) Allergies and Adverse Reactions No Known Drug [...]
[2020-01-13] MEDS ORDERED: SODIUM CHLORIDE 0.9% 1000ML 1,000 ML IV ONE ×2 (13:35→15:52)
[2020-01-13] MEDS ORDERED: KETOROLAC TROMETHAMINE 15 MG/ML VIAL IV ONE (13:35)
--- NOTE | 2020-01-13 13:40 | Emergency Department Note ---
Impression & Plan Coronavirus infection, Tachycardia, Multifocal pneumonia, Leukopenia ED Provider Note NAME: JENELLE EDWARDS AGE: 39 SEX: M : 1980 ARRIVES VIA: Walk-In INFORMANT: Patient ED PROVIDER(S): Byron Edmonds DO CHIEF COMPLAINT: Shortness of breath, cough, fever myalgias and arthralgias HPI: Patient is a 39-year-old male who presents the ER for not feeling well since this past Monday. Patient notes that he has been having fevers, myalgias and arthralgias since this past Monday. On Monday he started with a dry nonproductive cough. Denies any runny nose or sore throat. Fevers have persistently higher than 100.4 up until past 24 hours. Patient does note that he is having some shortness of breath with this. Does not think he has any loss of taste or smell. No recent trips or travel. No exposure to anyone with known coronavirus. He is not working currently. He does live with a roommate. No tick bites. Denies smoking. ROS: See above HPI for pertinent positives & negatives. A total of 10 systems reviewed and were otherwise negative. PAST MEDICAL HISTORY:See Below PAST SURGICAL HISTORY:See Below FAMILY HISTORY:See Below SOCIAL HISTORY:See Below HOME MEDICATIONS:See Below ALLERGIES:See Below VITALS:See Below PHYSICAL EXAMINATION: GENERAL: Sitting up in bed, persistent cough, nontoxic, alert EYE EXAM: normal conjunctiva. OROPHARYNX: no exudate, no erythema, lips, buccal mucosa, and tongue normal and mucous membranes are moist NECK: supple, no nuchal rigidity, no adenopathy, non-tender LUNGS: Clear to auscultation. Normal chest wall mechanics HEART: no murmurs, S1 normal and S2 normal ABDOMEN: abdomen soft, non-tender, normo-active bowel sounds, no masses, no rebound or guarding. BACK: Back is symmetrical on inspection and there is no deformity, no midline tenderness, no CVA tenderness. SKIN: no rashes and no bruising UPPER EXTREMITIES: upper extremities are grossly normal. LOWER EXTREMITIES: No pitting edema. NEURO EXAM: Normal sensorium, cranial nerves II-XII grossly intact, normal speech, no gross weakness of arms, no gross weakness of legs. MEDICAL DECISION MAKING: Patient is a 39-year-old male who presents the ER for cough shortness of breath and fevers. IV was established blood work was obtained. Patient is tachycardic. He is not hypoxic. He notes he was checking his pulse ox at home it was 90. LFTs show a mild leukopenia of 4.3. INR was unremarkable. BMP along with LFTs bilirubin and troponin was negative. UA was contaminated with multiple epithelial cells. Did order a Lyme which initially was negative. Patient was given IV fluids. Chest x-ray shows bilateral infiltrate. Patient was given Levaquin and Rocephin. After the IV fluids he still remains persistently tachycardic. Based on this I discussed with the hospitalist with multifocal pneumonia and persistent tachycardia. We had already sent the signout for coronavirus. Dr. Garrido recommended discussing with Dr. Rodriguez for rapid coving test. I discussed with Dr. Munroe and he agreed. COVID was obtained and was positive. Patient was updated. Remained on precautions throughout the entire stay. There were appropriate PPE on each of my 2 room evaluations. Patient was updated discussed the hospitalist for admission. Triage Nursing notes reviewed. Prior medical records reviewed Vital Signs: reviewed and remarkable for tachycardic Differential diagnosis: Differential diagnoses includes but is not limited to pneumonia, bronchitis, COPD/Asthma exacerbation, pneumothorax, pulmonary embolism, congestive heart failure, acute coronary syndrome ER treatment provided: See below Diagnostics interpreted by me: ECG: Sinus tachycardia rate of 123 Normal axis No PVCs Normal QTC Cardiac Monitoring: An order was placed for continuous cardiac monitoring. The monitor shows a rate of 125 with sinus rhythm. Laboratory studies: As stated above and show below. Imaging studies: Multifocal pneumonia portable AP upright chest x-ray Consultation(s): Dre with Dr. Garrido for admission Discussed with Dr. Rodriguez who agreed for coronavirus testingrapid ED COURSE: Procedures: none Critical Care: None Past Med/Surg History Social History marital status: Single Current Living Situation: Alone current occupational status: employed Feels Safe at Home: Yes Smoking Status: Never smoker Hx Alcohol Use: No Allergies Allergies Allergy/AdvReac Type Severity Reaction Status Date / Time onion Allergy Severe ANAPHYLAXIS Verified 01/13/20 14:31 Home Meds Home Medications Medication Instructions Recorded Confirmed acetaminophen [Tylenol] 650 mg PO BID 06/07/18 01/13/20 ibuprofen 800 mg PO TID PRN 06/07/18 01/13/20 Results & Data (ED) Vital Signs Vital Signs - 24 hr 01/13/20 12:51 01/13/20 14:17 01/13/20 14:36 Temperature 37.4 C Temperature Source Oral Pulse Rate 112 H Pulse Rate [Right Finger] 122 H 120 H Respiratory Rate 20 24 28 H Respiratory Effort / Characteristics Non-Labored Spontaneous Respiratory Depth Normal Normal Blood Pressure 139/95 Blood Pressure [Right Arm] 145/106 H 141/96 H Blood Pressure Mean 109 Blood Pressure Mean [Right Arm] 119 111 Pulse Oximetry 95 97 97 Oxygen Delivery Method Room Air Sepsis Recent Fever Within 48 Hours No Sepsis New/Unexplained Change in Mental Status No Sepsis Action Taken by Nursing No Action Required 01/13/20 15:00 01/13/20 15:30 01/13/20 16:44 Temperature 37.5 C Temperature Source Oral Pulse Rate 119 H 120 H Pulse Rate [Right Finger] 118 H Respiratory Rate 20 22 22 Respiratory Effort / Characteristics Non-Labored Respiratory Depth Normal Blood Pressure 127/87 122/91 Blood Pressure [Right Arm] 125/88 Blood Pressure Mean 110 103 Blood Pressure Mean [Right Arm] 100 Pulse Oximetry 93 Oxygen Delivery Method Room Air Sepsis Recent Fever Within 48 Hours Sepsis New/Unexplained Change in Mental Status Sepsis Action Taken by Nursing 01/13/20 17:00 01/13/20 17:30 01/13/20 17:58 Temperature 37.1 C Temperature Source Oral Pulse Rate 119 H 112 H Pulse Rate [Right Finger] Respiratory Rate 23 20 Respiratory Effort / Characteristics Respiratory Depth Blood Pressure 110/87 133/98 Blood Pressure [Right Arm] Blood Pressure Mean 95 104 Blood Pressure Mean [Right Arm] Pulse Oximetry 96 93 Oxygen Delivery Method Room Air Room Air Sepsis Recent Fever Within 48 Hours Sepsis New/Unexplained Change in Mental Status Sepsis Action Taken by Nursing 01/13/20 18:01 01/13/20 18:30 Temperature Temperature Source Pulse Rate 113 H 109 H Pulse Rate [Right Finger] Respiratory Rate 24 22 Respiratory Effort / Characteristics Respiratory Depth Blood Pressure 138/97 144/101 H Blood Pressure [Right Arm] Blood Pressure Mean 100 115 Blood Pressure Mean [Right Arm] Pulse Oximetry 94 94 Oxygen Delivery Method Room Air Room Air Sepsis Recent Fever Within 48 Hours Sepsis New/Unexplained Change in Mental Status Sepsis Action Taken by Nursing Laboratory Data Result diagrams: 01/13/20 14:05 01/13/20 14:05 Lab Results 01/13/20 01/13/20 01/13/20 Range/Units 14:05 14:05 14:05 WBC 4.35 L (4.8-10.8) K/uL RBC 6.18 H (4.7-6.1) M/uL Hgb 18.8 H (14.0-18.0) g/dL Hct 53.9 H (42-52) % MCV 87.2 (80-100) fL MCH 30.4 (25-34) pg MCHC 34.9 (32-36) g/dL RDW Std Deviation 42.5 (36.4-46.3) fL RDW Coeff of Anastasia 13.3 (11.5-14.5) % Plt Count 143 (130-400) K/uL MPV 11.0 H (7.4-10.4) fL Immature Gran % (Auto) 0.5 % Neut % (Auto) 63.0 % Lymph % (Auto) 23.9 % [place] % (Auto) 12.4 % Eos % (Auto) 0.0 % Baso % (Auto) 0.2 % Neut # (Auto) 2.74 (1.4-6.5) K/uL Lymph # (Auto) 1.04 L (1.2-3.4) K/uL [place] # (Auto) 0.54 (0.11-0.59) K/uL Eos # (Auto) 0.00 (0-0.5) K/uL Baso # (Auto) 0.01 (0-0.2) K/uL Immature Gran # (Auto) 0.02 (0.00-0.02) K/uL PT 11.0 (9.0-12.0) Seconds INR 1.0 (0.9-1.1) APTT 31.6 H (21.0-31.0) Seconds PTT Ratio 1.1 Sodium 135 L (136-145) mmol/L Potassium 4.0 (3.5-5.1) mmol/L Chloride 100 (98-107) mmol/L Carbon Dioxide 27 (21-32) mmol/L Anion Gap 7.0 (3-11) BUN 10 (7-18) mg/dl Creatinine 1.37 (0.6-1.4) mg/dl Est Cr Clr Drug Dosing 98.0 ml/min Est GFR ( Amer) 74.2 Est GFR (Non-Af Amer) 64.1 BUN/Creatinine Ratio 7.1 L (10-20) Glucose 118 H (70-99) mg/dl Calcium 8.5 (8.5-10.1) mg/dl Total Bilirubin 0.7 (0.2-1) mg/dl AST 46 H (15-37) U/L ALT 54 (12-78) U/L Alkaline Phosphatase 79 (45-117) U/L Troponin I < 0.015 (0-0.045) ng/ml NT-Pro-B Natriuret Pep < 5 (0-450) pg/ml Total Protein 8.8 H (6.4-8.2) gm/dl Albumin 3.6 (3.4-5.0) gm/dl Globulin 5.2 H (2.5-4.0) gm/dl Albumin/Globulin Ratio 0.7 L (0.9-2) Urine Color Urine Appearance (Clear) Urine pH (4.5-7.5) Ur Specific [place] (1.000-1.030) Urine Protein (Negative) Urine Glucose (UA) (Negative) Urine Ketones (Negative) Urine Blood (Negative) Urine Nitrite (Negative) Urine Bilirubin (Negative) Urine Urobilinogen (Negative) Ur Leukocyte Esterase (Negative) Urine WBC (Auto) (0-5) /hpf Urine RBC (Auto) (0-4) /hpf U Hyaline Cast (Auto) (0-5) /lpf U Epithel Cells (Auto) (0-5) /lpf Urine Bacteria (Auto) (Negative) Ur Renal Epithelial Cell Granular Casts (0) /lpf Urine Mucus (None Prsent) Lyme Disease IgG Ab (Negative) Lyme Disease IgM Ab (Negative) COVID-19 PCR (Negative) Influenza Type A (PCR) (Neg) Influenza Type B (PCR) (Neg) SARS-CoV-2 RNA (RT-PCR) 01/13/20 01/13/20 01/13/20 Range/Units 14:05 14:05 14:05 WBC (4.8-10.8) K/uL RBC (4.7-6.1) M/uL Hgb (14.0-18.0) g/dL Hct (42-52) % MCV (80-100) fL MCH (25-34) pg MCHC (32-36) g/dL RDW Std Deviation (36.4-46.3) fL RDW Coeff of Anastasia (11.5-14.5) % Plt Count (130-400) K/uL MPV (7.4-10.4) fL Immature Gran % (Auto) % Neut % (Auto) % Lymph % (Auto) % [place] % (Auto) % Eos % (Auto) % Baso % (Auto) % Neut # (Auto) (1.4-6.5) K/uL Lymph # (Auto) (1.2-3.4) K/uL [place] # (Auto) (0.11-0.59) K/uL Eos # (Auto) (0-0.5) K/uL Baso # (Auto) (0-0.2) K/uL Immature Gran # (Auto) (0.00-0.02) K/uL PT (9.0-12.0) Seconds INR (0.9-1.1) APTT (21.0-31.0) Seconds PTT Ratio Sodium (136-145) mmol/L Potassium (3.5-5.1) mmol/L Chloride (98-107) mmol/L Carbon Dioxide (21-32) mmol/L Anion Gap (3-11) BUN (7-18) mg/dl Creatinine (0.6-1.4) mg/dl Est Cr Clr Drug Dosing ml/min Est GFR ( Amer) Est GFR (Non-Af Amer) BUN/Creatinine Ratio (10-20) Glucose (70-99) mg/dl Calcium (8.5-10.1) mg/dl Total Bilirubin (0.2-1) mg/dl AST (15-37) U/L ALT (12-78) U/L Alkaline Phosphatase (45-117) U/L Troponin I (0-0.045) ng/ml NT-Pro-B Natriuret Pep (0-450) pg/ml Total Protein (6.4-8.2) gm/dl Albumin (3.4-5.0) gm/dl Globulin (2.5-4.0) gm/dl Albumin/Globulin Ratio (0.9-2) Urine Color Urine Appearance (Clear) Urine pH (4.5-7.5) Ur Specific [place] (1.000-1.030) Urine Protein (Negative) Urine Glucose (UA) (Negative) Urine Ketones (Negative) Urine Blood (Negative) Urine Nitrite (Negative) Urine Bilirubin (Negative) Urine Urobilinogen (Negative) Ur Leukocyte Esterase (Negative) Urine WBC (Auto) (0-5) /hpf Urine RBC (Auto) (0-4) /hpf U Hyaline Cast (Auto) (0-5) /lpf U Epithel Cells (Auto) (0-5) /lpf Urine Bacteria (Auto) (Negative) Ur Renal Epithelial Cell Granular Casts (0) /lpf Urine Mucus (None Prsent) Lyme Disease IgG Ab Negative (Negative) Lyme Disease IgM Ab Negative (Negative) COVID-19 PCR (Negative) Influenza Type A (PCR) Neg for Influ A (Neg) Influenza Type B (PCR) Neg for Influ B (Neg) SARS-CoV-2 RNA (RT-PCR) Cancelled 01/13/20 01/13/20 Range/Units 17:00 Unknown WBC (4.8-10.8) K/uL RBC (4.7-6.1) M/uL Hgb (14.0-18.0) g/dL Hct (42-52) % MCV (80-100) fL MCH (25-34) pg MCHC (32-36) g/dL RDW Std Deviation (36.4-46.3) fL RDW Coeff of Anastasia (11.5-14.5) % Plt Count (130-400) K/uL MPV (7.4-10.4) fL Immature Gran % (Auto) % Neut % (Auto) % Lymph % (Auto) % [place] % (Auto) % Eos % (Auto) % Baso % (Auto) % Neut # (Auto) (1.4-6.5) K/uL Lymph # (Auto) (1.2-3.4) K/uL [place] # (Auto) (0.11-0.59) K/uL Eos # (Auto) (0-0.5) K/uL Baso # (Auto) (0-0.2) K/uL Immature Gran # (Auto) (0.00-0.02) K/uL PT (9.0-12.0) Seconds INR (0.9-1.1) APTT (21.0-31.0) Seconds PTT Ratio Sodium (136-145) mmol/L Potassium (3.5-5.1) mmol/L Chloride (98-107) mmol/L Carbon Dioxide (21-32) mmol/L Anion Gap (3-11) BUN (7-18) mg/dl Creatinine (0.6-1.4) mg/dl Est Cr Clr Drug Dosing ml/min Est GFR ( Amer) Est GFR (Non-Af Amer) BUN/Creatinine Ratio (10-20) Glucose (70-99) mg/dl Calcium (8.5-10.1) mg/dl Total Bilirubin (0.2-1) mg/dl AST (15-37) U/L ALT (12-78) U/L Alkaline Phosphatase (45-117) U/L Troponin I (0-0.045) ng/ml NT-Pro-B Natriuret Pep (0-450) pg/ml Total Protein (6.4-8.2) gm/dl Albumin (3.4-5.0) gm/dl Globulin (2.5-4.0) gm/dl Albumin/Globulin Ratio (0.9-2) Urine Color Dark Yellow Urine Appearance Clear (Clear) Urine pH 5.0 (4.5-7.5) Ur Specific [place] 1.035 H (1.000-1.030) Urine Protein 3+ H (Negative) Urine Glucose (UA) Trace H (Negative) Urine Ketones 1+ H (Negative) Urine Blood Negative (Negative) Urine Nitrite Negative (Negative) Urine Bilirubin Negative (Negative) Urine Urobilinogen Negative (Negative) Ur Leukocyte Esterase Negative (Negative) Urine WBC (Auto) 1-5 (0-5) /hpf Urine RBC (Auto) 5-10 H (0-4) /hpf U Hyaline Cast (Auto) 10-30 H (0-5) /lpf U Epithel Cells (Auto) >30 H (0-5) /lpf Urine Bacteria (Auto) Negative (Negative) Ur Renal Epithelial Cell Not Reportable Granular Casts 1-5 H (0) /lpf Urine Mucus Present A (None Prsent) Lyme Disease IgG Ab (Negative) Lyme Disease IgM Ab (Negative) COVID-19 PCR POSITIVE A* (Negative) Influenza Type A (PCR) (Neg) Influenza Type B (PCR) (Neg) SARS-CoV-2 RNA (RT-PCR) Administered Medications Discontinued Medications Sodium Chloride (Nss 1000ml) 1,000 mls @ 999 mls/hr IV .Q1H1M ONE Stop: 01/13/20 14:35 Last Infusion: 01/13/20 15:37 Dose: 0 mls/hr Documented by: [id number] Admin: 01/13/20 14:27 Dose: 999 mls/hr Documented by: [id number] Sodium Chloride (Nss 1000ml) 1,000 mls @ 999 mls/hr IV .Q1H1M ONE Stop: 01/13/20 16:52 Last Infusion: 01/13/20 17:46 Dose: 0 mls/hr Documented by: [id number] Admin: 01/13/20 16:46 Dose: 999 mls/hr Documented by: [id number] Ceftriaxone Sodium (Rocephin) 1,000 mg in 50 mls @ 100 mls/hr IV NOW STA Stop: 01/13/20 16:32 Last Infusion: 01/13/20 17:16 Dose: 0 mls/hr Documented by: [id number] Admin: 01/13/20 16:46 Dose: 100 mls/hr Documented by: [id number] Ketorolac Tromethamine (Toradol) 10 mg IV NOW ONE Stop: 01/13/20 13:36 Last Admin: 01/13/20 14:27 Dose: 10 mg Documented by: [id number] Levofloxacin (Levaquin) 750 mg PO ONE ONE Stop: 01/13/20 14:13 Last Admin: 01/13/20 14:35 Dose: 750 mg Documented by: [id number] Discharge Plan Visit Data Chief Complaint: Cough Stated Complaint: COUGH,FEVER,HR/O2 FLUX ED Provider: Byron Edmonds Discharge Problem: Coronavirus infection, Tachycardia, Multifocal pneumonia, Leukopenia Forms Stand Alone Forms: [facility] Prescriptions Prescriptions: No Action acetaminophen [Tylenol] 325 mg Tablet 650 mg PO BID RF: 0 ibuprofen 800 mg Tablet 800 mg PO TID PRN (Reason: Pain) RF: 0 Discharge Problem: Leukopenia Qualifiers: Leukopenia type: unspecified Qualified Code(s): D72.819 - Decreased white blood cell count, unspecified
--- NOTE | 2020-01-13 14:04 | XRay Report ---
XR chest 1V portable CLINICAL HISTORY: Dyspnea COMPARISON STUDY: 08/26/2018 FINDINGS: The heart is borderline enlarged. There are subtle interstitial pulmonary opacities. Diagno stic considerations include a pneumonitis, or interstitial edema. There are no significant pleural ef fusions. Clinical and radiographic follow-up is recommended. IMPRESSION: Subtle bilateral interstitial opacities. Infectious/inflammatory pneumonitis must be cons idered. Interstitial pulmonary edema is within the differential but felt to be less likely. Clinical and radiographic follow-up is recommended. ACT 112: Negative or not required by law. Electronically signed by: Lionel Church M.D. 01/13/2020 2:03 PM
[2020-01-13] MEDS ORDERED: levoFLOXacin 750 MG TAB PO ONE (14:12)
[2020-01-13 14:23] LABS: Basophils # (auto) 0.01 K/uL (0-0.2); Basophils % (auto) 0.2 %; Hematocrit (blood only) 53.9 % (42-52); Hemoglobin 18.8 g/dL (14.0-18.0); Immature Granulocytes # (auto) 0.02 K/uL (0.00-0.02); Immature Granulocytes % (auto) 0.5 %; Lymphocytes # (auto) 1.04 K/uL (1.2-3.4); Lymphocytes % (auto) 23.9 %; Mean Corpuscular Hemoglobin 30.4 pg (25-34); Mean Corpuscular Hgb Conc 34.9 g/dL (32-36); Mean Corpuscular Volume 87.2 fL (80-100); Monocytes # (auto) 0.54 K/uL (0.11-0.59); Monocytes % (auto) 12.4 %; Neutrophils # (auto) 2.74 K/uL (1.4-6.5); Platelet Count 143 K/uL (130-400); RDW Coefficient of Variation 13.3 % (11.5-14.5); RDW Standard Deviation 42.5 fL (36.4-46.3); Red Blood Count 6.18 M/uL (4.7-6.1); White Blood Count 4.35 K/uL (4.8-10.8)
--- NOTE | 2020-01-13 14:32 | Electrocardiogram Report ---
Test Reason : Blood Pressure : / mmHG Vent. Rate : 123 BPM Atrial Rate : 123 BPM P-R Int : 140 ms QRS Dur : 090 ms QT Int : 314 ms P-R-T Axes : 054 020 022 degrees QTc Int : 449 ms Sinus tachycardia Incomplete right bundle branch block Otherwise normal ECG When compared with ECG of 26-AUG-2018 11:33, No significant change was found Confirmed by Sanjeev Elizondo ([id number]) on 01/13/2020 2:31:55 PM Referred By: Confirmed By:Rodolfo Elizondo
[2020-01-13 14:38] LABS: Albumin Level 3.6 gm/dl (3.4-5.0); BUN Creatinine Ratio 7.1 (10-20); Blood Urea Nitrogen 10 mg/dl (7-18); Calcium 8.5 mg/dl (8.5-10.1); Carbon Dioxide 27 mmol/L (21-32); Chloride 100 mmol/L (98-107); Est GFR (African American) 74.2; Est GFR (Non-African American) 64.1; Glucose 118 mg/dl (70-99); Sodium 135 mmol/L (136-145)
[2020-01-13 14:41] LABS: Partial Thromboplastin Ratio 1.1; Partial Thromboplastin Time 31.6 Seconds (21.0-31.0)
[2020-01-13 14:43] LABS: Alanine Aminotransferase 54 U/L (12-78); Albumin Globulin Ratio 0.7 (0.9-2); Alkaline Phosphatase 79 U/L (45-117); Aspartate Aminotransferase 46 U/L (15-37); Bilirubin,Total 0.7 mg/dl (0.2-1); Globulin 5.2 gm/dl (2.5-4.0); NT Pro B Type Natriuretic Pept < 5 pg/ml (0-450); Total Protein 8.8 gm/dl (6.4-8.2); Troponin I < 0.015 ng/ml (0-0.045)
[2020-01-13 15:00] LABS: Influenza A virus by PCR Neg for Influ A (Neg); Influenza B virus by PCR Neg for Influ B (Neg)
[2020-01-13 15:05] LABS: Lyme Ab IgG w/WB Rflx Negative (Negative); Lyme Ab IgM w/WB Rflx Negative (Negative)
[2020-01-13] MEDS ORDERED: cefTRIAXone SODIUM 1,000 MG/50 ML BAG IV STA (16:03)
[2020-01-13 17:12] LABS: Appearance Urine Clear (Clear); Bacteria Urine Automated Negative (Negative); Blood Urine Negative (Negative); Color Urine Dark Yellow; Epithelial Cell Urine Auto >30 /lpf (0-5); Glucose Urine UA Trace (Negative); Ketones Urine 1+ (Negative); Leukocyte Esterase Urine Negative (Negative); Nitrite Urine Negative (Negative); Protein Urine 3+ (Negative); Specific Gravity Urine 1.035 (1.000-1.030); Urobilinogen Urine Negative (Negative)
[2020-01-13 17:28] LABS: Bilirubin Urine Negative (Negative); Ictotest Urine Negative (Negative)
[2020-01-13 17:36] LABS: Mucus Urine Present (None Prsent)
[2020-01-13] MEDS ORDERED: LORazepam 1 MG TAB SL STA (19:22)
--- NOTE | 2020-01-13 20:26 | History & Physical Report ---
Date of Service January 13, 2020 Assessment & Plan (1) Coronavirus infection: COVID + in the ED Isolation precautions O2 sats 93-97% on RA, afebrile in the ED, hold on remdesivir for now Mild tachycardia with stable BP, monitor with IVF Flu neg Pt with no hx of tobacco use or underlying lung disease Most concerning risk factor for poor prognosis with COVID dx is morbid obesity Advised pt to inform roommate to be tested and self isolate x14 days. Advised him to tell other contacts as well. He states he has been texting other known contacts since he was informed of dx. (2) Multifocal pneumonia: Ceftriaxone/levaquin started in the ED, will continue IVF Seen on CXR (3) Bipolar II disorder: States currently untx due to no PCP, psych care, or insurance CM c/s for assistance (4) DVT prophylaxis: Heparin for DVT proph History of Present Illness Primary Care Provider: NO PCP 39 y/o M c/o fever and diarrhea. Pt states that he started having fever and diarrhea on Monday. He started to have a dry cough on Monday. His roommate's mother is a nurse and advised them to get a home pulse ox "due to the increase in COVID cases". They started to monitor and it was noted yesterday and today that pt's HR was 110s-130s and his pulse ox was 88-96. Pt has not eaten in the last two days due to nausea. No emesis. When he continued to feel unwell, he came to the ED. Pt denies fever, chest pain, abd pain, LE pain or swelling. Pt denies SOB until he was told in the ED that he was COVID + "and I think I just got nervous". Denies loss of taste or smell. Pt says when he told his roommate about his dx, she told him that today she noted loss of taste and smell. He has not been working due to COVID. No travel. No sick contacts. Pt was started on IVF and abx in the ED. He states that his nausea has resolved and he was able to eat all of the dinner brought to him in the ED. 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 Allergies Allergy/AdvReac Type Severity Reaction Status Date / Time onion Allergy Severe ANAPHYLAXIS Verified 01/13/20 14:31 Home Medications Home Medications Medication Instructions Recorded Confirmed Type acetaminophen [Tylenol] 650 mg PO BID 06/07/18 01/13/20 History ibuprofen 800 mg PO TID PRN 06/07/18 01/13/20 History Past Med/Surg History Medical History Bipolar II disorder (Chronic) Migraine (Resolved) Surgical History No significant past surgical history Social History (Updated 01/13/20 @ 20:20 by Arabella Garrido DO) marital status: Single Current Living Situation: Alone current occupational status: employed Feels Safe at Home: Yes Smoking Status: Never smoker Hx Alcohol Use: No Hx Substance Use: No Review of Systems Review of Systems: Pertinent positives and negatives reviewed in HPI--all others negative Physical Exam Constitutional: WD/WN, vitals as above Eyes: normal visual pinto by confrontation and + anicteric sclerae Neck: normal visual inspection and trachea midline Respiratory: normal respiratory effort; no respiratory distress Auscultation: + crackles (bases); no wheezes Cardiovascular: Rate/Rhythm: regular rhythm and + tachycardic Gastrointestinal (Abdomen): Inspection/Auscultation: abdomen not distended Percussion/Palpation: abdomen soft; abdomen nontender Musculoskeletal: Head/Neck/Chest: normocephalic and head atraumatic negative for edema, peripheral pulses intact Skin: no rashes, warm and dry Neurologic: awake; not confused Speech / Cognition: normal speech Psychiatric: A+Ox3, euthymic affect Results & Data Results & Data ([facility]) Vital Signs (Past 12 Hours) Vital Signs Temp Pulse Pulse Resp BP BP Pulse Ox 01/13/20 19:30 119 H 18 127/103 H 93 01/13/20 18:30 109 H 22 144/101 H 94 01/13/20 18:01 113 H 24 138/97 94 01/13/20 17:58 37.1 C 01/13/20 17:30 112 H 20 133/98 93 01/13/20 17:00 119 H 23 110/87 96 01/13/20 16:44 37.5 C 118 H 22 125/88 93 01/13/20 15:30 120 H 22 122/91 01/13/20 15:00 119 H 20 127/87 01/13/20 14:36 120 H 28 H 141/96 H 97 01/13/20 14:17 122 H 24 145/106 H 97 01/13/20 12:51 37.4 C 112 H 20 139/95 95 Diagnostic Findings CXR: b/l PNA ECG Additional Comments: incomplete RBBB Code Status & VTE Plan Code Status Full code VTE Prophylaxis Plan VTE Prophylaxis will be ordered: Yes PG Care Time/CCT Total # of Minutes Spent Total Time Spent with Patient: Total time spent is greater than 50% in coordination of care (as documented) at patient's floor/unit and/or counseling patient: Coding Level of Care Code 56338 Initial Inpt Care Lvl 3 Diagnoses Coronavirus infection B34.2 Multifocal pneumonia J18.9 Bipolar II disorder F31.81 DVT prophylaxis Z29.9
[2020-01-13] MEDS ORDERED: ONDANSETRON INJ 2 MG/ML 2 ML VIAL ONE (20:54)
[2020-01-13] MEDS ORDERED: ONDANSETRON INJ 2 MG/ML 2 ML VIAL IV PRN (21:20)
[2020-01-13] MEDS ORDERED: IBUPROFEN 800 MG TAB PO PRN (21:20)
[2020-01-13] MEDS ORDERED: ACETAMINOPHEN 325 MG TAB PO SCH (21:20)
[2020-01-13] MEDS ORDERED: cefTRIAXone SODIUM 1,000 MG in DEXTROSE 5% 50 ML IV SCH (21:20)
[2020-01-13] MEDS ORDERED: MAGNESIUM HYDROXIDE SUSP 30 ML UDC PO PRN (21:20)
[2020-01-13] MEDS ORDERED: ACETAMINOPHEN 325 MG TAB PO PRN (21:20)
[2020-01-13] MEDS: SODIUM CHLORIDE 0.45 % 1,000 ML IV SCH (22:55)
[2020-01-13] MEDS: HEPARIN SOD 5,000 UNIT/0.5 ML VIAL SQ SCH (22:55)
[2020-01-13] MEDS: ACETAMINOPHEN 500 MG TAB PO PRN (22:55)
[2020-01-14] MEDS: HEPARIN SOD 5,000 UNIT/0.5 ML VIAL SQ SCH ×2 (05:25→14:01)
[2020-01-14 07:45] LABS: Basophils # (auto) 0.01 K/uL (0-0.2); Basophils % (auto) 0.3 %; Hematocrit (blood only) 46.6 % (42-52); Hemoglobin 16.4 g/dL (14.0-18.0); Immature Granulocytes # (auto) 0.02 K/uL (0.00-0.02); Immature Granulocytes % (auto) 0.6 %; Lymphocytes # (auto) 0.81 K/uL (1.2-3.4); Lymphocytes % (auto) 24.2 %; Mean Corpuscular Hemoglobin 30.4 pg (25-34); Mean Corpuscular Hgb Conc 35.2 g/dL (32-36); Mean Corpuscular Volume 86.5 fL (80-100); Mean Platelet Volume 10.6 fL (7.4-10.4); Monocytes # (auto) 0.31 K/uL (0.11-0.59); Monocytes % (auto) 9.3 %; Neutrophils % (auto) 65.6 %; Platelet Count 120 K/uL (130-400); RDW Coefficient of Variation 13.2 % (11.5-14.5); Red Blood Count 5.39 M/uL (4.7-6.1); White Blood Count 3.35 K/uL (4.8-10.8)
[2020-01-14] MEDS: ACETAMINOPHEN 500 MG TAB PO PRN ×2 (08:08→18:32)
[2020-01-14] MEDS: SODIUM CHLORIDE 0.45 % 1,000 ML IV SCH (08:12)
[2020-01-14 08:19] LABS: BUN Creatinine Ratio 8.8 (10-20); Calcium 7.9 mg/dl (8.5-10.1); Creatinine Clr Calc Pharmacy 138.4 ml/min; Est GFR (African American) 112.7; Est GFR (Non-African American) 97.3
[2020-01-14 10:52] LABS: D Dimer 970 ug/L FEU (0-500)
[2020-01-14] MEDS ORDERED: REMDESIVIR 200 mg: Day 1 IV ONE (11:00)
[2020-01-14 11:26] LABS: Albumin Level 3.1 gm/dl (3.4-5.0); Bilirubin Direct 0.2 mg/dl (0-0.2); Bilirubin,Total 0.7 mg/dl (0.2-1); C Reactive Protein 2.43 mg/dl (0-0.29); Total Protein 7.3 gm/dl (6.4-8.2)
[2020-01-14] MEDS: NSS 30mL Flush, Days 1-5 IV SCH (14:00)
[2020-01-14] MEDS: cefTRIAXone SODIUM 2,000 MG in DEXTROSE 5% 50 ML IV SCH (16:55)
--- NOTE | 2020-01-14 17:11 | Hospitalist Progress Note ---
Date of Service January 14, 2020 Assessment & Plan (1) Coronavirus infection: COVID + in the ED, flu negative Continue isolation precautions Upon admission, O2 sats 93-97% on RA, but now hypoxia is worsening down to 88% on room air Continues with fevers, sinus tachycardia. With bilateral subtle interstitial infiltrates on chest x-ray. With elevated d-dimer, CRP, mildly elevated transaminases, leukopenia and thrombocytopenia all consistent with COVID. Pt with no hx of tobacco use or underlying lung disease Most concerning risk factor for poor prognosis with COVID dx is morbid obesity Given development of severe COVID with worsening hypoxia, discussed case with pulmonology -Start 5-day course of Remdesivir on 01/13 -Begin dexamethasone 6 mg p.o. once daily on 01/13 x 10-day course -Supplemental O2 to keep pulse ox greater than 88-92 % -If worsening respiratory status or development of ARDS, will transfer to ICU for critical care management -Continue acetaminophen or ibuprofen as needed for fevers -DC IV fluids and try to keep him as dry as possible-will not give IV Lasix at this time as he was volume depleted on admission (2) Acute respiratory failure with hypoxia: As above, secondary to COVID Supplemental O2 as needed to keep pulse ox greater than 88-92% (3) Multifocal pneumonia: As noted above on chest x-ray, most likely secondary to COVID and not true bacterial infection -Check procalcitonin in the morning and if negative, will discontinue Rocephin (4) Thrombocytopenia: Platelets down today to 120, secondary to COVID infection -Follow CBC (5) Obesity: BMI 37.5 Needs encouragement for weight loss (6) Sinus tachycardia: Sinus tachycardia to the 120s secondary to febrile illness and mild volume depletion IV fluids were given and now discontinued as above -Follow on telemetry Treat fevers with acetaminophen (7) Elevated blood pressure reading: Blood pressures quite elevated at times, could be underlying hypertension as he reports elevated blood pressures in the past -Also stress of illness plus dexamethasone likely also going to increase pressures -IV hydralazine as needed -Continue to follow BPs (8) Leukopenia: Secondary to COVID -Follow CBC (9) Bipolar II disorder: States currently untx due to no PCP, psych care, or insurance CM c/s for assistance (10) DVT prophylaxis: Patient is refusing injections for DVT prophylaxis, however stressed that he is at high risk for VTE in the setting of COVID He is agreeable to taking the DVT prophylaxis dose of Xarelto 10 mg p.o. once daily Disposition-continued stay on PCU Admission and Anticipated Discharge Date Admission Date: January 13, 2020 Subjective Patient reports he feels okay today. Continues to spike fevers. Denies shortness of breath despite mild hypoxia. Has a dry cough. Denies any chest pain or abdominal pain. No nausea and he is eating. He did have one episode of explosive diarrhea which caused incontinence this morning. No further diarrhea since then. He denies headache or loss of taste or smell. Telemetry with sinus tachycardia with rates in the 100s to 120s with times into the 140s with exertion. Review of Systems Review of Systems: All systems reviewed & are unremarkable except as noted in HPI & below Physical Exam Constitutional: WD/WN, vitals as above + obese Eyes: + anicteric sclerae Neck: trachea midline, no thyromegaly Respiratory: normal respiratory effort; no labored breathing Auscultation: + diminished lung sounds (Throughout due to body habitus); no crackles, no rhonc hi and no wheezes Cardiovascular: Rate/Rhythm: regular rhythm and + tachycardic Heart Sounds: no murmur Extremities: no calf tenderness and no edema Chest (Breasts): Chest: normal inspection of chest Gastrointestinal (Abdomen): normal bowel sounds, soft, nontender, no hepatosplenomegaly Musculoskeletal: Extremities: extremities normal to inspection; no cyanosis and no clubbing Skin: no rashes, warm and dry Neurologic: moves all extremities and awake; no focal motor deficits Psychiatric: A+Ox3, euthymic affect Lymphatic: no lymphedema Results & Data Results & Data ([facility]) Vital Signs (Past 12 Hours) Vital Signs Temp Pulse Pulse Resp BP BP Pulse Ox 01/14/20 16:44 38.4 C H 119 H 18 149/99 H 90 01/14/20 11:35 37.5 C 107 H 20 126/85 92 01/14/20 09:05 37.9 C H 01/14/20 08:15 139/92 01/14/20 08:07 39.1 C H 127 H 22 146/107 H 91 01/14/20 08:00 130 H Laboratory Results 01/14/20 01/14/20 01/14/20 Range/Units 10:12 09:57 07:34 WBC (4.8-10.8) K/uL RBC (4.7-6.1) M/uL Hgb (14.0-18.0) g/dL Hct (42-52) % MCV (80-100) fL MCH (25-34) pg MCHC (32-36) g/dL RDW Std Deviation (36.4-46.3) fL RDW Coeff of Anastasia (11.5-14.5) % Plt Count (130-400) K/uL MPV (7.4-10.4) fL Immature Gran % (Auto) % Neut % (Auto) % Lymph % (Auto) % [place] % (Auto) % Eos % (Auto) % Baso % (Auto) % Neut # (Auto) (1.4-6.5) K/uL Lymph # (Auto) (1.2-3.4) K/uL [place] # (Auto) (0.11-0.59) K/uL Eos # (Auto) (0-0.5) K/uL Baso # (Auto) (0-0.2) K/uL Immature Gran # (Auto) (0.00-0.02) K/uL Hyposegmented Neuts D-Dimer 970 H* (0-500) ug/L FEU Sodium 133 L (136-145) mmol/L Potassium 4.0 (3.5-5.1) mmol/L Chloride 101 (98-107) mmol/L Carbon Dioxide 25 (21-32) mmol/L Anion Gap 6.0 (3-11) BUN 9 (7-18) mg/dl Creatinine 0.97 D (0.6-1.4) mg/dl Est Cr Clr Drug Dosing 138.4 ml/min Est GFR ( Amer) 112.7 Est GFR (Non-Af Amer) 97.3 BUN/Creatinine Ratio 8.8 L (10-20) Glucose 105 H (70-99) mg/dl Calcium 7.9 L (8.5-10.1) mg/dl Ferritin 283.0 (8-388) ng/ml Total Bilirubin 0.7 (0.2-1) mg/dl Direct Bilirubin 0.2 (0-0.2) mg/dl AST 40 H (15-37) U/L ALT 40 (12-78) U/L Alkaline Phosphatase 63 (45-117) U/L C-Reactive Protein 2.43 H (0-0.29) mg/dl Total Protein 7.3 (6.4-8.2) gm/dl Albumin 3.1 L (3.4-5.0) gm/dl 01/14/20 Range/Units 07:34 WBC 3.35 L (4.8-10.8) K/uL RBC 5.39 (4.7-6.1) M/uL Hgb 16.4 (14.0-18.0) g/dL Hct 46.6 (42-52) % MCV 86.5 (80-100) fL MCH 30.4 (25-34) pg MCHC 35.2 (32-36) g/dL RDW Std Deviation 42.0 (36.4-46.3) fL RDW Coeff of Anastasia 13.2 (11.5-14.5) % Plt Count 120 L (130-400) K/uL MPV 10.6 H (7.4-10.4) fL Immature Gran % (Auto) 0.6 % Neut % (Auto) 65.6 % Lymph % (Auto) 24.2 % [place] % (Auto) 9.3 % Eos % (Auto) 0.0 % Baso % (Auto) 0.3 % Neut # (Auto) 2.20 (1.4-6.5) K/uL Lymph # (Auto) 0.81 L (1.2-3.4) K/uL [place] # (Auto) 0.31 (0.11-0.59) K/uL Eos # (Auto) 0.00 (0-0.5) K/uL Baso # (Auto) 0.01 (0-0.2) K/uL Immature Gran # (Auto) 0.02 (0.00-0.02) K/uL Hyposegmented Neuts 1+ D-Dimer (0-500) ug/L FEU Sodium (136-145) mmol/L Potassium (3.5-5.1) mmol/L Chloride (98-107) mmol/L Carbon Dioxide (21-32) mmol/L Anion Gap (3-11) BUN (7-18) mg/dl Creatinine (0.6-1.4) mg/dl Est Cr Clr Drug Dosing ml/min Est GFR ( Amer) Est GFR (Non-Af Amer) BUN/Creatinine Ratio (10-20) Glucose (70-99) mg/dl Calcium (8.5-10.1) mg/dl Ferritin (8-388) ng/ml Total Bilirubin (0.2-1) mg/dl Direct Bilirubin (0-0.2) mg/dl AST (15-37) U/L ALT (12-78) U/L Alkaline Phosphatase (45-117) U/L C-Reactive Protein (0-0.29) mg/dl Total Protein (6.4-8.2) gm/dl Albumin (3.4-5.0) gm/dl PG Care Time/CCT Total # of Minutes Spent Total Time Spent with Patient: Total time spent is greater than 50% in coordination of care (as documented) at patient's floor/unit and/or counseling patient: Coding Level of Care Code 19760 Subseq Hosp Care Lvl 3 Diagnoses Coronavirus infection B34.2 Acute respiratory failure with hypoxia J96.01 Multifocal pneumonia J18.9 Thrombocytopenia D69.6 Obesity E66.9 Sinus tachycardia R00.0 Elevated blood pressure reading R03.0 Leukopenia D72.819 Leukopenia type: unspecified Bipolar II disorder F31.81 DVT prophylaxis Z29.9 (1) Leukopenia Leukopenia type: unspecified Qualified Code(s): D72.819 - Decreased white blood cell count, unspecified
[2020-01-14] MEDS ORDERED: ENOXAPARIN INJ 60 MG/0.6 ML SYR SQ SCH (18:00)
[2020-01-14] MEDS: RIVAROXABAN 10 MG TABLET PO SCH (18:25)
[2020-01-14] MEDS ORDERED: HydrALAZINE HCL 20 MG/ML VIAL IV PRN (20:33)
[2020-01-15 06:28] LABS: Basophils # (auto) 0.02 K/uL (0-0.2); Basophils % (auto) 0.8 %; Hematocrit (blood only) 46.4 % (42-52); Immature Granulocytes # (auto) 0.02 K/uL (0.00-0.02); Immature Granulocytes % (auto) 0.8 %; Lymphocytes # (auto) 0.83 K/uL (1.2-3.4); Lymphocytes % (auto) 31.8 %; Mean Corpuscular Hemoglobin 29.6 pg (25-34); Mean Corpuscular Hgb Conc 34.5 g/dL (32-36); Mean Corpuscular Volume 85.9 fL (80-100); Mean Platelet Volume 10.3 fL (7.4-10.4); Monocytes # (auto) 0.24 K/uL (0.11-0.59); Monocytes % (auto) 9.2 %; Neutrophils % (auto) 57.4 %; Platelet Count 110 K/uL (130-400); RDW Coefficient of Variation 13.2 % (11.5-14.5); RDW Standard Deviation 41.6 fL (36.4-46.3); White Blood Count 2.61 K/uL (4.8-10.8)
[2020-01-15 06:59] LABS: D Dimer 710 ug/L FEU (0-500)
[2020-01-15 07:04] LABS: BUN Creatinine Ratio 9.3 (10-20); Creatinine Clr Calc Pharmacy 152.7 ml/min; Est GFR (African American) 124.5; Est GFR (Non-African American) 107.5; Magnesium 2.1 mg/dl (1.8-2.4); Potassium 4.1 mmol/L (3.5-5.1)
[2020-01-15 07:05] LABS: RBC Morphology Unremarkable
[2020-01-15 07:11] LABS: C Reactive Protein 2.99 mg/dl (0-0.29); Ferritin 282.5 ng/ml (8-388)
[2020-01-15] MEDS: dexAMETHasone 4 MG TAB PO SCH (08:01)
[2020-01-15] MEDS: RIVAROXABAN 10 MG TABLET PO SCH (08:01)
[2020-01-15] MEDS: REMDESIVIR 100mg: Days 2-5 IV SCH (11:14)
[2020-01-15] MEDS: NSS 30mL Flush, Days 1-5 IV SCH (12:12)
[2020-01-15] MEDS: cefTRIAXone SODIUM 2,000 MG in DEXTROSE 5% 50 ML IV SCH (16:04)
--- NOTE | 2020-01-15 19:55 | Hospitalist Progress Note ---
Date of Service January 15, 2020 Assessment & Plan (1) Coronavirus infection: COVID + in the ED, flu negative Continue isolation precautions Upon admission, O2 sats 93-97% on RA, but none hypoxia worsened down to 88% on room air-now on 2 L with sats 93% Fevers and sinus tachycardia both resolved today. With bilateral subtle interstitial infiltrates on chest x-ray. With elevated d-dimer, CRP, mildly elevated transaminases, leukopenia and thrombocytopenia all consistent with COVID. Pt with no hx of tobacco use or underlying lung disease Most concerning risk factor for poor prognosis with COVID dx is morbid obesity Given development of severe COVID with worsening hypoxia, discussed case with pulmonology and was started on a course of REM to severe and dexamethasone. He is improved today and I believe he could likely be weaned off the oxygen D-dimer and CRP trending downward -Continue 5-day course of Remdesivir on 01/13 -Continue dexamethasone 6 mg p.o. once daily on 01/13 x 10-day course -Supplemental O2 to keep pulse ox greater than 88-92% -If worsening respiratory status or development of ARDS, will transfer to ICU for critical care management -Continue acetaminophen or ibuprofen as needed for fevers -DCd IV fluids and try to keep him as dry as possible-will not give IV Lasix at this time as he was volume depleted on admission (2) Acute respiratory failure with hypoxia: As above, secondary to COVID Supplemental O2 as needed to keep pulse ox greater than 88-92% (3) Multifocal pneumonia: As noted above on chest x-ray, most likely secondary to COVID and not true bacterial infection -procalcitonin is negative-will discontinue Rocephin (4) Thrombocytopenia: Platelets down slightly further 110, secondary to COVID infection -Follow CBC (5) Obesity: BMI 37.5 Needs encouragement for weight loss (6) Sinus tachycardia: Sinus tachycardia to the 120s secondary to febrile illness and mild volume depletion upon admission Rates are now much improved with resolution of fevers IV fluids were given and now discontinued as above -Follow on telemetry Treat fevers with acetaminophen (7) Elevated blood pressure reading: Blood pressures quite elevated at times, could be underlying hypertension as he reports elevated blood pressures in the past Improved today -Also stress of illness plus dexamethasone likely also going to increase pressures -IV hydralazine as needed -Continue to follow BPs (8) Leukopenia: Secondary to COVID -Follow CBC (9) Bipolar II disorder: States currently untx due to no PCP, psych care, or insurance CM c/s for assistance (10) DVT prophylaxis: Patient is refusing injections for DVT prophylaxis, however stressed that he is at high risk for VTE in the setting of COVID He is agreeable to taking the DVT prophylaxis dose of Xarelto 10 mg p.o. once daily Disposition-continued stay on PCU, but overall seems improved Admission and Anticipated Discharge Date Admission Date: January 13, 2020 Subjective Patient feeling better today. Appetite is improved, still has a dry cough but does not feel short of breath but remains on 2 L nasal cannula. No further diarrhea, no headache or abdominal pains. He has not had a fever today. Telemetry with normal sinus rhythm with rates improved down to the 90s to 100s. Review of Systems Review of Systems: All systems reviewed & are unremarkable except as noted in HPI & below (No heartburn or indigestion) Physical Exam Constitutional: WD/WN, vitals as above + obese Eyes: + anicteric sclerae Neck: trachea midline, no thyromegaly Respiratory: normal respiratory effort; no labored breathing Auscultation: + diminished lung sounds (Throughout due to body habitus); no crackles, no rhonchi and no wheezes Cardiovascular: RRR, no murmur, no edema Extremities: no calf tenderness Gastrointestinal (Abdomen): normal bowel sounds, soft, nontender, no hepatosplenomegaly Musculoskeletal: Extremities: extremities normal to inspection; no cyanosis and no clubbing Skin: no rashes, warm and dry Neurologic: moves all extremities and awake; no focal motor deficits Psychiatric: A+Ox3, euthymic affect Lymphatic: no lymphedema Results & Data Results & Data ([facility]) Vital Signs (Past 12 Hours) Vital Signs Temp Pulse Pulse Resp BP Pulse Ox 01/15/20 16:05 37 C 93 H 19 153/94 H 93 01/15/20 14:51 95 H 01/15/20 11:14 37 C 103 H 20 142/91 H 93 01/15/20 08:46 106 H 01/15/20 07:55 36.8 C 118 H 16 121/71 97 Laboratory Results 01/15/20 01/15/20 01/15/20 Range/Units 06:17 06:17 06:17 WBC (4.8-10.8) K/uL RBC (4.7-6.1) M/uL Hgb (14.0-18.0) g/dL Hct (42-52) % MCV (80-100) fL MCH (25-34) pg MCHC (32-36) g/dL RDW Std Deviation (36.4-46.3) fL RDW Coeff of Anastasia (11.5-14.5) % Plt Count (130-400) K/uL MPV (7.4-10.4) fL Immature Gran % (Auto) % Neut % (Auto) % Lymph % (Auto) % [place] % (Auto) % Eos % (Auto) % Baso % (Auto) % Neut # (Auto) (1.4-6.5) K/uL Lymph # (Auto) (1.2-3.4) K/uL [place] # (Auto) (0.11-0.59) K/uL Eos # (Auto) (0-0.5) K/uL Baso # (Auto) (0-0.2) K/uL Immature Gran # (Auto) (0.00-0.02) K/uL RBC Morphology D-Dimer (0-500) ug/L FEU Sodium 134 L (136-145) mmol/L Potassium 4.1 (3.5-5.1) mmol/L Chloride 100 (98-107) mmol/L Carbon Dioxide 28 (21-32) mmol/L Anion Gap 6.0 (3-11) BUN 8 (7-18) mg/dl Creatinine 0.88 (0.6-1.4) mg/dl Est Cr Clr Drug Dosing 152.7 ml/min Est GFR ( Amer) 124.5 Est GFR (Non-Af Amer) 107.5 BUN/Creatinine Ratio 9.3 L (10-20) Glucose 85 (70-99) mg/dl Calcium 8.0 L (8.5-10.1) mg/dl Magnesium 2.1 (1.8-2.4) mg/dl Ferritin 282.5 (8-388) ng/ml Lactate Dehydrogenase 414 H (87-241) U/L C-Reactive Protein 2.99 H (0-0.29) mg/dl Procalcitonin 0.09 (0-0.5) ng/ml 01/15/20 01/15/20 Range/Units 06:17 06:17 WBC 2.61 L (4.8-10.8) K/uL RBC 5.40 (4.7-6.1) M/uL Hgb 16.0 (14.0-18.0) g/dL Hct 46.4 (42-52) % MCV 85.9 (80-100) fL MCH 29.6 (25-34) pg MCHC 34.5 (32-36) g/dL RDW Std Deviation 41.6 (36.4-46.3) fL RDW Coeff of Anastasia 13.2 (11.5-14.5) % Plt Count 110 L (130-400) K/uL MPV 10.3 (7.4-10.4) fL Immature Gran % (Auto) 0.8 % Neut % (Auto) 57.4 % Lymph % (Auto) 31.8 % [place] % (Auto) 9.2 % Eos % (Auto) 0.0 % Baso % (Auto) 0.8 % Neut # (Auto) 1.50 (1.4-6.5) K/uL Lymph # (Auto) 0.83 L (1.2-3.4) K/uL [place] # (Auto) 0.24 (0.11-0.59) K/uL Eos # (Auto) 0.00 (0-0.5) K/uL Baso # (Auto) 0.02 (0-0.2) K/uL Immature Gran # (Auto) 0.02 (0.00-0.02) K/uL RBC Morphology Unremarkable D-Dimer 710 H* (0-500) ug/L FEU Sodium (136-145) mmol/L Potassium (3.5-5.1) mmol/L Chloride (98-107) mmol/L Carbon Dioxide (21-32) mmol/L Anion Gap (3-11) BUN (7-18) mg/dl Creatinine (0.6-1.4) mg/dl Est Cr Clr Drug Dosing ml/min Est GFR ( Amer) Est GFR (Non-Af Amer) BUN/Creatinine Ratio (10-20) Glucose (70-99) mg/dl Calcium (8.5-10.1) mg/dl Magnesium (1.8-2.4) mg/dl Ferritin (8-388) ng/ml Lactate Dehydrogenase (87-241) U/L C-Reactive Protein (0-0.29) mg/dl Procalcitonin (0-0.5) ng/ml PG Care Time/CCT Total # of Minutes Spent Total Time Spent with Patient: Total time spent is greater than 50% in coordination of care (as documented) at patient's floor/unit and/or counseling patient: Coding Level of Care Code 38201 Subseq Hosp Care Lvl 3 Diagnoses Coronavirus infection B34.2 Acute respiratory failure with hypoxia J96.01 Multifocal pneumonia J18.9 Thrombocytopenia D69.6 Obesity E66.9 Sinus tachycardia R00.0 Elevated blood pressure reading R03.0 Leukopenia D72.819 Leukopenia type: unspecified Bipolar II disorder F31.81 DVT prophylaxis Z29.9 (1) Leukopenia Leukopenia type: unspecified Qualified Code(s): D72.819 - Decreased white blood cell count, unspecified
[2020-01-16 07:28] LABS: Basophils # (auto) 0.02 K/uL (0-0.2); Basophils % (auto) 0.7 %; Hematocrit (blood only) 46.5 % (42-52); Hemoglobin 15.9 g/dL (14.0-18.0); Immature Granulocytes # (auto) 0.01 K/uL (0.00-0.02); Immature Granulocytes % (auto) 0.4 %; Lymphocytes # (auto) 0.73 K/uL (1.2-3.4); Lymphocytes % (auto) 25.7 %; Mean Corpuscular Hemoglobin 29.3 pg (25-34); Mean Corpuscular Hgb Conc 34.2 g/dL (32-36); Mean Corpuscular Volume 85.8 fL (80-100); Mean Platelet Volume 10.9 fL (7.4-10.4); Monocytes # (auto) 0.47 K/uL (0.11-0.59); Monocytes % (auto) 16.5 %; Neutrophils # (auto) 1.61 K/uL (1.4-6.5); Neutrophils % (auto) 56.7 %; Platelet Count 158 K/uL (130-400); RDW Standard Deviation 41.1 fL (36.4-46.3); Red Blood Count 5.42 M/uL (4.7-6.1); White Blood Count 2.84 K/uL (4.8-10.8)
[2020-01-16 07:32] LABS: Prothrombin Time 10.9 Seconds (9.0-12.0)
[2020-01-16 07:35] LABS: D Dimer 690 ug/L FEU (0-500)
[2020-01-16 07:51] LABS: Albumin Level 2.8 gm/dl (3.4-5.0); Bilirubin Direct 0.2 mg/dl (0-0.2); C Reactive Protein 2.04 mg/dl (0-0.29); Calcium 8.4 mg/dl (8.5-10.1); Creatinine Clr Calc Pharmacy 189.3 ml/min; Est GFR (Non-African American) 117.4; Potassium 4.2 mmol/L (3.5-5.1)
[2020-01-16 07:56] LABS: Bilirubin,Total 0.6 mg/dl (0.2-1); Ferritin 246.8 ng/ml (8-388); Total Protein 7.1 gm/dl (6.4-8.2)
[2020-01-16] MEDS: RIVAROXABAN 10 MG TABLET PO SCH (09:12)
[2020-01-16] MEDS: dexAMETHasone 4 MG TAB PO SCH (09:12)
[2020-01-16] MEDS: NSS 30mL Flush, Days 1-5 IV SCH (11:54)
[2020-01-16] MEDS: REMDESIVIR 100mg: Days 2-5 IV SCH (11:56)
[2020-01-16] MEDS ORDERED: IPRATROPIUM BROMIDE/ALBUTEROL respimat INH INH SCH (18:35)
--- NOTE | 2020-01-16 18:36 | Hospitalist Progress Note ---
Date of Service January 16, 2020 Assessment & Plan (1) Coronavirus infection: COVID + in the ED, flu negative Continue isolation precautions Upon admission, O2 sats 93-97% on RA, but then hypoxia worsened down to 88% on room air-today was tried on room air and sats were 84-85%, then titrated back up to 2 L to keep sats above 88% Fevers and sinus tachycardia both resolved x2 days With bilateral subtle interstitial infiltrates on chest x-ray. With elevated d-dimer, CRP, mildly elevated transaminases, leukopenia and thrombocytopenia all consistent with COVID. These laboratory values are all improving at this time Pt with no hx of tobacco use or underlying lung disease Most concerning risk factor for poor prognosis with COVID dx is morbid obesity Given development of severe COVID with worsening hypoxia, discussed case with pulmonology and was started on a course of REM to severe and dexamethasone. -Continue 5-day course of Remdesivir on 01/13 -Continue dexamethasone 6 mg p.o. once daily on 01/13 x 10-day course -Continue supplemental O2 to keep pulse ox greater than 88-92% and attempt to wean down O2 on a daily basis -Start Robitussin-DM 10 mL's p.o. every 6 hours as needed cough -Start Combivent inhaler 1 puff 4 times daily for bronchospasm -Check chest x-ray in the morning -Continue to follow CBC, CMP, CRP, ferritin, LDH, and d-dimer daily for markers of disease but also while on Remdesivir for monitoring -If worsening respiratory status or development of ARDS, will transfer to ICU for critical care management -Continue acetaminophen or ibuprofen as needed for fevers -DCd IV fluids and try to keep him as dry as possible-will not give IV Lasix at this time as he was volume depleted on admission, but would give IV Lasix if respiratory status worsens by tomorrow (2) Acute respiratory failure with hypoxia: As above, secondary to COVID Supplemental O2 as needed to keep pulse ox greater than 88-92% (3) Multifocal pneumonia: As noted above on chest x-ray, most likely secondary to COVID and not true bacterial infection -procalcitonin is negative-have since discontinued Rocephin -Check chest x-ray in the morning (4) Thrombocytopenia: Platelets down to 110, secondary to COVID infection, now improving back to normal -Follow CBC (5) Obesity: BMI 37.5 Needs encouragement for weight loss (6) Sinus tachycardia: Sinus tachycardia to the 120s secondary to febrile illness and mild volume depletion upon admission Rates are now much improved with resolution of fevers IV fluids were given and now discontinued as above -Follow on telemetry Treat fevers with acetaminophen (7) Elevated blood pressure reading: Blood pressures quite elevated at times initially, could be underlying hypertension as he reports elevated blood pressures in the past Now improved -Also stress of illness plus dexamethasone likely also going to increase pressures -IV hydralazine as needed -Continue to follow BPs (8) Leukopenia: Secondary to COVID, improving -Follow CBC (9) Bipolar II disorder: States currently untx due to no PCP, psych care, or insurance CM c/s for assistance (10) DVT prophylaxis: Patient declined injections for DVT prophylaxis, however stressed that he is at high risk for VTE in the setting of COVID He is agreeable to taking the DVT prophylaxis dose of Xarelto 10 mg p.o. once daily Disposition-continued stay on PCU Admission and Anticipated Discharge Date Admission Date: January 13, 2020 Subjective Patient reports a constant irritating dry cough all day. He denies shortness of breath. He was tried on room air but was satting 84-85%. The nurse then had him on 1.5 L and he still was satting only 87-88%, so he was bumped back up to 2 L today. He denies headache or chest pain, no nausea or vomiting, no diarrhea or abdominal pain. He is eating well. He has no other complaints. Review of Systems Review of Systems: All systems reviewed & are unremarkable except as noted in HPI & below Physical Exam Constitutional: WD/WN, vitals as above + obese Eyes: + anicteric sclerae Neck: trachea midline, no thyromegaly Respiratory: normal respiratory effort and + cough (Frequent with any inspiration that was deep); no labored breathing Auscultation: + diminished lung sounds (Throughout due to body habitus) and + wheezes (Bilateral end expiratory wheezes in upper lung pinto); no crackles and no rhonchi Cardiovascular: RRR, no murmur, no edema Extremities: no calf tenderness Chest (Breasts): Chest: normal inspection of chest Gastrointestinal (Abdomen): normal bowel sounds, soft, nontender, no hepat osplenomegaly Musculoskeletal: Extremities: extremities normal to inspection; no cyanosis and no clubbing Skin: no rashes, warm and dry Neurologic: moves all extremities and awake; no focal motor deficits Psychiatric: A+Ox3, euthymic affect Lymphatic: no lymphedema Results & Data Results & Data ([facility]) Vital Signs (Past 12 Hours) Vital Signs Temp Pulse Pulse Resp BP Pulse Ox 01/16/20 15:11 88 01/16/20 14:18 36.8 C 89 16 139/95 90 01/16/20 11:57 36.7 C 90 18 141/91 H 94 01/16/20 08:04 36.7 C 83 18 150/79 H 96 01/16/20 08:00 75 Laboratory Results 01/16/20 01/16/20 01/16/20 Range/Units 06:51 06:51 06:51 WBC 2.84 L (4.8-10.8) K/uL RBC 5.42 (4.7-6.1) M/uL Hgb 15.9 (14.0-18.0) g/dL Hct 46.5 (42-52) % MCV 85.8 (80-100) fL MCH 29.3 (25-34) pg MCHC 34.2 (32-36) g/dL RDW Std Deviation 41.1 (36.4-46.3) fL RDW Coeff of Anastasia 13.0 (11.5-14.5) % Plt Count 158 (130-400) K/uL MPV 10.9 H (7.4-10.4) fL Immature Gran % (Auto) 0.4 % Neut % (Auto) 56.7 % Lymph % (Auto) 25.7 % [place] % (Auto) 16.5 % Eos % (Auto) 0.0 % Baso % (Auto) 0.7 % Neut # (Auto) 1.61 (1.4-6.5) K/uL Lymph # (Auto) 0.73 L (1.2-3.4) K/uL [place] # (Auto) 0.47 (0.11-0.59) K/uL Eos # (Auto) 0.00 (0-0.5) K/uL Baso # (Auto) 0.02 (0-0.2) K/uL Immature Gran # (Auto) 0.01 (0.00-0.02) K/uL PT 10.9 (9.0-12.0) Seconds INR 1.0 (0.9-1.1) D-Dimer 690 H* (0-500) ug/L FEU Sodium (136-145) mmol/L Potassium (3.5-5.1) mmol/L Chloride (98-107) mmol/L Carbon Dioxide (21-32) mmol/L Anion Gap (3-11) BUN (7-18) mg/dl Creatinine (0.6-1.4) mg/dl Est Cr Clr Drug Dosing ml/min Est GFR ( Amer) Est GFR (Non-Af Amer) BUN/Creatinine Ratio (10-20) Glucose (70-99) mg/dl Calcium (8.5-10.1) mg/dl Ferritin (8-388) ng/ml Total Bilirubin (0.2-1) mg/dl Direct Bilirubin (0-0.2) mg/dl AST (15-37) U/L ALT (12-78) U/L Alkaline Phosphatase (45-117) U/L Lactate Dehydrogenase 387 H (87-241) U/L C-Reactive Protein (0-0.29) mg/dl Total Protein (6.4-8.2) gm/dl Albumin (3.4-5.0) gm/dl 01/16/20 Range/Units 06:51 WBC (4.8-10.8) K/uL RBC (4.7-6.1) M/uL Hgb (14.0-18.0) g/dL Hct (42-52) % MCV (80-100) fL MCH (25-34) pg MCHC (32-36) g/dL RDW Std Deviation (36.4-46.3) fL RDW Coeff of Anastasia (11.5-14.5) % Plt Count (130-400) K/uL MPV (7.4-10.4) fL Immature Gran % (Auto) % Neut % (Auto) % Lymph % (Auto) % [place] % (Auto) % Eos % (Auto) % Baso % (Auto) % Neut # (Auto) (1.4-6.5) K/uL Lymph # (Auto) (1.2-3.4) K/uL [place] # (Auto) (0.11-0.59) K/uL Eos # (Auto) (0-0.5) K/uL Baso # (Auto) (0-0.2) K/uL Immature Gran # (Auto) (0.00-0.02) K/uL PT (9.0-12.0) Seconds INR (0.9-1.1) D-Dimer (0-500) ug/L FEU Sodium 136 (136-145) mmol/L Potassium 4.2 (3.5-5.1) mmol/L Chloride 105 (98-107) mmol/L Carbon Dioxide 24 (21-32) mmol/L Anion Gap 8.0 (3-11) BUN 14 D (7-18) mg/dl Creatinine 0.71 (0.6-1.4) mg/dl Est Cr Clr Drug Dosing 189.3 ml/min Est GFR ( Amer) 136.0 Est GFR (Non-Af Amer) 117.4 BUN/Creatinine Ratio 20.0 (10-20) Glucose 125 H (70-99) mg/dl Calcium 8.4 L (8.5-10.1) mg/dl Ferritin 246.8 (8-388) ng/ml Total Bilirubin 0.6 (0.2-1) mg/dl Direct Bilirubin 0.2 (0-0.2) mg/dl AST 27 (15-37) U/L ALT 31 (12-78) U/L Alkaline Phosphatase 57 (45-117) U/L Lactate Dehydrogenase (87-241) U/L C-Reactive Protein 2.04 H (0-0.29) mg/dl Total Protein 7.1 (6.4-8.2) gm/dl Albumin 2.8 L (3.4-5.0) gm/dl PG Care Time/CCT Total # of Minutes Spent Total Time Spent with Patient: Total time spent is greater than 50% in coordination of care (as documented) at patient's floor/unit and/or counseling patient: Coding Level of Care Code 86809 Subseq Hosp Care Lvl 3 Diagnoses Coronavirus infection B34.2 Acute respiratory failure with hypoxia J96.01 Multifocal pneumonia J18.9 Thrombocytopenia D69.6 Obesity E66.9 Sinus tachycardia R00.0 Elevated blood pressure reading R03.0 Leukopenia D72.819 Leukopenia type: unspecified Bipolar II disorder F31.81 DVT prophylaxis Z29.9 (1) Leukopenia Leukopenia type: unspecified Qualified Code(s): D72.819 - Decreased white blood cell count, unspecified
[2020-01-16] MEDS ORDERED: dexAMETHasone 1 MG TAB PO ONE (19:04)
[2020-01-16] MEDS: GUAIFENESIN/DEXTROM SYRUP 200MG/20MG 10ML UDC PO PRN (20:42)
[2020-01-16] MEDS: IPRATROPIUM BROMIDE HFA INHALER INH SCH (21:46)
[2020-01-16] MEDS: ALBUTEROL HFA 8 GM INHALER INH SCH (21:47)
[2020-01-17] MEDS: ALBUTEROL HFA 8 GM INHALER INH SCH ×4 (07:30→19:41)
[2020-01-17] MEDS: IPRATROPIUM BROMIDE HFA INHALER INH SCH ×4 (07:31→19:40)
[2020-01-17 07:42] LABS: Basophils # (auto) 0.04 K/uL (0-0.2); Basophils % (auto) 0.8 %; Hematocrit (blood only) 45.3 % (42-52); Hemoglobin 15.3 g/dL (14.0-18.0); Immature Granulocytes # (auto) 0.04 K/uL (0.00-0.02); Immature Granulocytes % (auto) 0.8 %; Lymphocytes # (auto) 0.76 K/uL (1.2-3.4); Lymphocytes % (auto) 15.3 %; Mean Corpuscular Hemoglobin 29.3 pg (25-34); Mean Corpuscular Hgb Conc 33.8 g/dL (32-36); Mean Corpuscular Volume 86.8 fL (80-100); Monocytes # (auto) 0.41 K/uL (0.11-0.59); Monocytes % (auto) 8.3 %; Neutrophils # (auto) 3.71 K/uL (1.4-6.5); Neutrophils % (auto) 74.8 %; Platelet Count 200 K/uL (130-400); RDW Coefficient of Variation 13.2 % (11.5-14.5); RDW Standard Deviation 41.8 fL (36.4-46.3); Red Blood Count 5.22 M/uL (4.7-6.1); White Blood Count 4.96 K/uL (4.8-10.8)
[2020-01-17] MEDS: GUAIFENESIN/DEXTROM SYRUP 200MG/20MG 10ML UDC PO PRN (07:43)
[2020-01-17] MEDS: RIVAROXABAN 10 MG TABLET PO SCH (07:44)
[2020-01-17] MEDS: dexAMETHasone 4 MG TAB PO SCH (07:45)
[2020-01-17 08:00] LABS: Albumin Level 2.8 gm/dl (3.4-5.0); BUN Creatinine Ratio 18.1 (10-20); C Reactive Protein 0.89 mg/dl (0-0.29); Calcium 8.4 mg/dl (8.5-10.1); Creatinine Clr Calc Pharmacy 148.7 ml/min; Potassium 4.1 mmol/L (3.5-5.1)
[2020-01-17 08:05] LABS: D Dimer 560 ug/L FEU (0-500)
[2020-01-17 08:10] LABS: Albumin Globulin Ratio 0.7 (0.9-2); Bilirubin,Total 0.5 mg/dl (0.2-1); Ferritin 199.1 ng/ml (8-388); Globulin 4.1 gm/dl (2.5-4.0); Thyroid Stimulating Hormone 0.479 uIu/ml (0.300-4.500); Total Protein 6.9 gm/dl (6.4-8.2)
--- NOTE | 2020-01-17 08:46 | XRay Report ---
XR chest 1V portable CLINICAL HISTORY: f/o PNA, COVID, hypoxia dyspnea COMPARISON STUDY: 01/13/2020 FINDINGS: Progressive diffuse bilateral parenchymal infiltrative change. Diaphragms are smooth. Subse gmental atelectasis left base. IMPRESSION: Interval development and/or progressive change of diffuse bilateral parenchymal infiltra tive change. ACT 112: Negative or not required by law. The above report was generated using voice recognition software. It may contain grammatical, syntax or spelling errors. Electronically signed by: Helio Abad M.D. 01/17/2020 8:45 AM
[2020-01-17] MEDS: REMDESIVIR 100mg: Days 2-5 IV SCH (12:03)
[2020-01-17] MEDS: NSS 30mL Flush, Days 1-5 IV SCH (12:04)
--- NOTE | 2020-01-17 16:53 | Hospitalist Progress Note ---
Date of Service January 17, 2020 Assessment & Plan (1) Coronavirus infection: COVID + in the ED, flu negative Continue isolation precautions Upon admission, O2 sats 93-97% on RA, but then hypoxia worsened down to 88% on room air-today was tried on room air and sats were 84-85%, then titrated back up to 2 L to keep sats above 88% Fevers and sinus tachycardia both resolved x2 days With bilateral subtle interstitial infiltrates on chest x-ray. With elevated d-dimer, CRP, mildly elevated transaminases, leukopenia and thrombocytopenia all consistent with COVID. These laboratory values are all improving at this time Pt with no hx of tobacco use or underlying lung disease Most concerning risk factor for poor prognosis with COVID dx is morbid obesity Given development of severe COVID with worsening hypoxia, discussed case with pulmonology and was started on a course of remdesivir and dexamethasone. -Continue 5-day course of Remdesivir on 01/13, will finish this tomorrow -Continue dexamethasone 6 mg p.o. once daily on 01/13 x 10-day course, can continue at home -Continue supplemental O2 to keep pulse ox greater than 88-92% and attempt to wean down O2 on a daily basis -Continue Robitussin-DM 10 mL's p.o. every 6 hours as needed cough -Continue Combivent inhaler 1 puff 4 times daily for bronchospasm -CXR shows worsening infiltrates but likely was just lagging behind his illness -Continue to follow CBC, CMP, CRP, ferritin, LDH, and d-dimer daily for markers of disease but also while on Remdesivir for monitoring -If worsening respiratory status or development of ARDS, will transfer to ICU for critical care management -Continue acetaminophen or ibuprofen as needed for fevers - possible discharge tomorrow after finishing course of remdesivir if stable O2 sats (2) Acute respiratory failure with hypoxia: As above, secondary to COVID Supplemental O2 as needed to keep pulse ox greater than 88-92% (3) Multifocal pneumonia: As noted above on chest x-ray, most likely secondary to COVID and not true bacterial infection -procalcitonin is negative-have since discontinued Rocephin - will repeat procalcitonin in AM give CXR findings although suspect this is all COVID-19 (4) Thrombocytopenia: Platelets down to 110, secondary to COVID infection, now improving back to normal -Follow CBC (5) Obesity: BMI 37.5 Needs encouragement for weight loss (6) Elevated blood pressure reading: Blood pressures quite elevated at times initially, could be underlying hypertension as he reports elevated blood pressures in the past Now improved -Also stress of illness plus dexamethasone likely also going to increase pressures -IV hydralazine as needed -Continue to follow BPs (7) Leukopenia: Secondary to COVID, improving -Follow CBC (8) Bipolar II disorder: States currently untx due to no PCP, psych care, or insurance CM c/s for assistance (9) DVT prophylaxis: Patient declined injections for DVT prophylaxis, however stressed that he is at high risk for VTE in the setting of COVID He is agreeable to taking the DVT prophylaxis dose of Xarelto 10 mg p.o. once daily, some evidence to stay on this as outpatient but will defer to discharging physician Disposition-continued stay on PCU Admission and Anticipated Discharge Date Admission Date: January 13, 2020 Subjective Patient feels he is slowly improving. Continues with productive cough and shortness of breath mainly on exertion. No acute concerns. Discussed CXR findings worse but all other lab tests look improved. CXR this morning shows worsening b/l infiltrates. Review of Systems Review of Systems: All systems reviewed & are unremarkable except as noted in HPI & below Physical Exam Constitutional: WD/WN, vitals as above + obese; no acute distress Eyes: + anicteric sclerae; normal pupil size ENMT: Ears: no external ear abnormality Nose: no external nose abnormality Neck: normal visual inspection and trachea midline Respiratory: normal respiratory effort and + cough (Frequent); no respiratory distress and no labored breathing Auscultation: + diminished lung sounds (Throughout); no crackles, no rales, no rhonchi and no wheezes Cardiovascular: Rate/Rhythm: regular rate and regular rhythm Heart Sounds: no murmur Extremities: no calf tenderness and no pedal edema Chest (Breasts): Chest: normal inspection of chest Gastrointestinal (Abdomen): Percussion/Palpation: abdomen soft; abdomen nontender Musculoskeletal: no cyanosis or clubbing, extremities motor strength 5/5 Extremities: extremities normal to inspection; no cyanosis and no clubbing Skin: no rashes, warm and dry Neurologic: moves all extremities and awake; not confused Psychiatric: A+Ox3, euthymic affect Results & Data Results & Data ([facility]) Vital Signs (Past 12 Hours) Vital Signs Temp Pulse Pulse Resp BP Pulse Ox 01/17/20 15:26 87 18 90 01/17/20 14:49 86 01/17/20 12:06 36.7 C 86 20 126/79 89 L 01/17/20 11:20 83 20 90 01/17/20 08:00 82 01/17/20 07:40 36.5 C 84 21 119/79 90 01/17/20 07:31 75 18 91 01/17/20 06:00 36.5 C 75 20 119/79 90 PG Care Time/CCT Total # of Minutes Spent Total Time Spent with Patient: Total time spent is greater than 50% in coordination of care (as documented) at patient's floor/unit and/or counseling patient: Coding Level of Care Code 83412 Subseq Hosp Care Lvl 3 Diagnoses Coronavirus infection B34.2 Acute respiratory failure with hypoxia J96.01 Multifocal pneumonia J18.9 Thrombocytopenia D69.6 Obesity E66.9 Elevated blood pressure reading R03.0 Leukopenia D72.819 Leukopenia type: unspecified Bipolar II disorder F31.81 DVT prophylaxis Z29.9 (1) Leukopenia Leukopenia type: unspecified Qualified Code(s): D72.819 - Decreased white blood cell count, unspecified
[2020-01-18] MEDS: IPRATROPIUM BROMIDE HFA INHALER INH SCH ×4 (07:53→19:46)
[2020-01-18] MEDS: ALBUTEROL HFA 8 GM INHALER INH SCH ×4 (07:54→19:46)
[2020-01-18] MEDS: dexAMETHasone 4 MG TAB PO SCH (08:05)
[2020-01-18] MEDS: RIVAROXABAN 10 MG TABLET PO SCH (08:06)
[2020-01-18 09:27] LABS: Basophils # (auto) 0.02 K/uL (0-0.2); Basophils % (auto) 0.2 %; Hematocrit (blood only) 46.7 % (42-52); Hemoglobin 15.8 g/dL (14.0-18.0); Immature Granulocytes # (auto) 0.15 K/uL (0.00-0.02); Immature Granulocytes % (auto) 1.6 %; Lymphocytes # (auto) 1.49 K/uL (1.2-3.4); Lymphocytes % (auto) 16.3 %; Mean Corpuscular Hemoglobin 29.8 pg (25-34); Mean Corpuscular Hgb Conc 33.8 g/dL (32-36); Mean Corpuscular Volume 87.9 fL (80-100); Mean Platelet Volume 10.5 fL (7.4-10.4); Monocytes # (auto) 0.92 K/uL (0.11-0.59); Monocytes % (auto) 10.1 %; Neutrophils # (auto) 6.55 K/uL (1.4-6.5); Neutrophils % (auto) 71.8 %; Platelet Count 267 K/uL (130-400); RDW Coefficient of Variation 13.4 % (11.5-14.5); RDW Standard Deviation 43.3 fL (36.4-46.3); Red Blood Count 5.31 M/uL (4.7-6.1); White Blood Count 9.13 K/uL (4.8-10.8)
[2020-01-18 09:53] LABS: BUN Creatinine Ratio 18.2 (10-20); Calcium 8.1 mg/dl (8.5-10.1); Creatinine Clr Calc Pharmacy 142.4 ml/min; Est GFR (African American) 118.6; Est GFR (Non-African American) 102.3; Potassium 3.6 mmol/L (3.5-5.1)
[2020-01-18] MEDS: REMDESIVIR 100mg: Days 2-5 IV SCH (11:52)
[2020-01-18] MEDS: NSS 30mL Flush, Days 1-5 IV SCH (11:52)
--- NOTE | 2020-01-18 19:09 | Hospitalist Progress Note ---
Date of Service January 18, 2020 Assessment & Plan (1) Coronavirus infection: COVID + in the ED, flu negative Continue isolation precautions Upon admission, O2 sats 93-97% on RA, but then hypoxia worsened down to 84 % on room air-was requiring 2 L nasal cannula Now weaned off oxygen on 01/17 and pulse ox 90%, much improved Fevers and sinus tachycardia both resolved With bilateral subtle interstitial infiltrates on chest x-ray initially and then repeat chest x-ray on 01/16 significantly worse despite being clinically improved. With elevated d-dimer, CRP, mildly elevated transaminases, leukopenia and thrombocytopenia all consistent with COVID. These laboratory values are all improving at this time Pt with no hx of tobacco use or underlying lung disease Most concerning risk factor for poor prognosis with COVID dx is morbid obesity Given development of severe COVID with worsening hypoxia, discussed case with pulmonology and was started on a course of remdesivir and dexamethasone. -Has now completed a 5-day course of Remdesivir -Continue dexamethasone 6 mg p.o. once daily starting on 01/13 x 10-day course, can continue at home -Has now been weaned off oxygen-continue as needed to keep pulse ox greater than 88%, will ambulate him in the room tomorrow prior to discharge to ensure no need for O2 -Continue Robitussin-DM 10 mL's p.o. every 6 hours as needed for cough -Continue Combivent inhaler 1 puff 4 times daily for bronchospasm as this is really helping -CXR shows worsening infiltrates but likely was just lagging behind his illness -Continue to follow CBC, CMP, CRP, ferritin, LDH, and d-dimer daily for markers of disease but also while on Remdesivir for monitoring -If worsening respiratory status or development of ARDS, will transfer to ICU for critical care management -Continue acetaminophen or ibuprofen as needed for fevers - possible discharge tomorrow if stable O2 sats (2) Acute respiratory failure with hypoxia: As above, secondary to COVID, now resolved Supplemental O2 as needed to keep pulse ox greater than 88-92% (3) Multifocal pneumonia: As noted above on chest x-ray, most likely secondary to COVID and not true bacterial infection -procalcitonin is negative x2-have since discontinued Rocephin (4) Thrombocytopenia: Platelets down to 110 at the dani, secondary to COVID infection, now normal -Follow CBC (5) Obesity: BMI 37.5 Needs encouragement for weight loss (6) Elevated blood pressure reading: Blood pressures quite elevated at times initially, could be underlying hypertension as he reports elevated blood pressures in the past Now improved -Also stress of illness plus dexamethasone likely also going to increase pressur es -IV hydralazine as needed -Continue to follow BPs (7) Leukopenia: Secondary to COVID, resolved -Follow CBC (8) Bipolar II disorder: States currently untx due to no PCP, psych care, or insurance (9) DVT prophylaxis: Patient declined injections for DVT prophylaxis, however stressed that he is at high risk for VTE in the setting of COVID He is agreeable to taking the DVT prophylaxis dose of Xarelto 10 mg p.o. once daily, some evidence to stay on this as outpatient-we will discuss with him upon discharge although he has no health insurance and will be costly Disposition-continued stay on PCU, but possible discharge home tomorrow Admission and Anticipated Discharge Date Admission Date: January 13, 2020 Subjective Patient feeling much better today, no shortness of breath. Cough is almost completely gone. He feels well. He is eating well. No headache or chest pain, no nausea or vomiting or diarrhea. No abdominal pain. He is ambulating around the room without oxygen as it has been weaned off and has no shortness of breath with exertion. Telemetry with normal sinus rhythm, rates in the 70s Review of Systems Review of Systems: All systems reviewed & are unremarkable except as noted in HPI & below Physical Exam Constitutional: WD/WN, vitals as above + obese Eyes: + anicteric sclerae Neck: trachea midline, no thyromegaly Respiratory: normal respiratory effort, lungs clear to auscultation Cardiovascular: RRR, no murmur, no edema Extremities: no calf tenderness Gastrointestinal (Abdomen): normal bowel sounds, soft, nontender, no hepatosplenomegaly Musculoskeletal: Extremities: extremities normal to inspection; no cyanosis and no clubbing Skin: no rashes, warm and dry Neurologic: moves all extremities and awake; no focal motor deficits Psychiatric: A+Ox3, euthymic affect Lymphatic: no lymphedema Results & Data Results & Data ([facility]) Vital Signs (Past 12 Hours) Vital Signs Temp Pulse Pulse Resp BP Pulse Ox 01/18/20 15:49 86 01/18/20 11:51 36.6 C 98 H 20 140/88 90 01/18/20 08:02 36.7 C 83 20 135/82 90 01/18/20 08:00 69 01/18/20 07:54 77 18 92 Laboratory Results 01/18/20 01/18/20 01/18/20 Range/Units 09:05 09:05 09:05 WBC 9.13 (4.8-10.8) K/uL RBC 5.31 (4.7-6.1) M/uL Hgb 15.8 (14.0-18.0) g/dL Hct 46.7 (42-52) % MCV 87.9 (80-100) fL MCH 29.8 (25-34) pg MCHC 33.8 (32-36) g/dL RDW Std Deviation 43.3 (36.4-46.3) fL RDW Coeff of Anastasia 13.4 (11.5-14.5) % Plt Count 267 (130-400) K/uL MPV 10.5 H (7.4-10.4) fL Immature Gran % (Auto) 1.6 % Neut % (Auto) 71.8 % Lymph % (Auto) 16.3 % Wolfe % (Auto) 10.1 % Eos % (Auto) 0.0 % Baso % (Auto) 0.2 % Neut # (Auto) 6.55 H (1.4-6.5) K/uL Lymph # (Auto) 1.49 (1.2-3.4) K/uL Wolfe # (Auto) 0.92 H (0.11-0.59) K/uL Eos # (Auto) 0.00 (0-0.5) K/uL Baso # (Auto) 0.02 (0-0.2) K/uL Immature Gran # (Auto) 0.15 H (0.00-0.02) K/uL Sodium 140 (136-145) mmol/L Potassium 3.6 (3.5-5.1) mmol/L Chloride 108 H (98-107) mmol/L Carbon Dioxide 26 (21-32) mmol/L Anion Gap 5.0 (3-11) BUN 17 (7-18) mg/dl Creatinine 0.93 (0.6-1.4) mg/dl Est Cr Clr Drug Dosing 142.4 ml/min Est GFR ( Amer) 118.6 Est GFR (Non-Af Amer) 102.3 BUN/Creatinine Ratio 18.2 (10-20) Glucose 121 H (70-99) mg/dl Calcium 8.1 L (8.5-10.1) mg/dl AST 29 (15-37) U/L ALT 49 (12-78) U/L Procalcitonin < 0.05 (0-0.5) ng/ml PG Care Time/CCT Total # of Minutes Spent Total Time Spent with Patient: Total time spent is greater than 50% in coordination of care (as documented) at patient's floor/unit and/or counseling patient: Coding Level of Care Code 42069 Subseq Hosp Care Lvl 2 Diagnoses Coronavirus infection B34.2 Acute respiratory failure with hypoxia J96.01 Multifocal pneumonia J18.9 Thrombocytopenia D69.6 Obesity E66.9 Elevated blood pressure reading R03.0 Leukopenia D72.819 Leukopenia type: unspecified Bipolar II disorder F31.81 DVT prophylaxis Z29.9 (1) Leukopenia Leukopenia type: unspecified Qualified Code(s): D72.819 - Decreased white blood cell count, unspecified
[2020-01-19] MEDS: ALBUTEROL HFA 8 GM INHALER INH SCH ×2 (07:50→11:35)
[2020-01-19] MEDS: IPRATROPIUM BROMIDE HFA INHALER INH SCH ×2 (07:51→11:35)
[2020-01-19 07:54] LABS: Basophils # (auto) 0.03 K/uL (0-0.2); Basophils % (auto) 0.4 %; Eosinophils # (auto) 0.02 K/uL (0-0.5); Eosinophils % (auto) 0.3 %; Hematocrit (blood only) 43.6 % (42-52); Hemoglobin 14.9 g/dL (14.0-18.0); Lymphocytes # (auto) 1.75 K/uL (1.2-3.4); Lymphocytes % (auto) 26.2 %; Mean Corpuscular Hemoglobin 29.6 pg (25-34); Mean Corpuscular Hgb Conc 34.2 g/dL (32-36); Mean Corpuscular Volume 86.7 fL (80-100); Mean Platelet Volume 10.5 fL (7.4-10.4); Monocytes # (auto) 0.86 K/uL (0.11-0.59); Monocytes % (auto) 12.9 %; Neutrophils # (auto) 3.82 K/uL (1.4-6.5); Neutrophils % (auto) 57.2 %; Platelet Count 239 K/uL (130-400); RDW Coefficient of Variation 13.3 % (11.5-14.5); RDW Standard Deviation 42.1 fL (36.4-46.3); Red Blood Count 5.03 M/uL (4.7-6.1); White Blood Count 6.68 K/uL (4.8-10.8)
[2020-01-19 08:27] LABS: Albumin Level 2.6 gm/dl (3.4-5.0); BUN Creatinine Ratio 20.9 (10-20); Calcium 7.9 mg/dl (8.5-10.1); Creatinine Clr Calc Pharmacy 189.6 ml/min; Est GFR (African American) 136.8; Potassium 3.8 mmol/L (3.5-5.1)
[2020-01-19 08:32] LABS: Bilirubin Direct 0.2 mg/dl (0-0.2); Bilirubin,Total 0.6 mg/dl (0.2-1); C Reactive Protein 0.77 mg/dl (0-0.29); Ferritin 163.3 ng/ml (8-388); Total Protein 6.4 gm/dl (6.4-8.2)
[2020-01-19 08:33] LABS: D Dimer 450 ug/L FEU (0-500)
[2020-01-19] MEDS: dexAMETHasone 4 MG TAB PO SCH (08:40)
[2020-01-19] MEDS: RIVAROXABAN 10 MG TABLET PO SCH (08:40)
--- NOTE | 2020-01-19 12:33 | Discharge Summary ---
Date of Service January 19, 2020 Admission HPI Per Admitting Provider 39 y/o M c/o fever and diarrhea. Pt states that he started having fever and diarrhea on Monday. He started to have a dry cough on Monday. His roommate's mother is a nurse and advised them to get a home pulse ox "due to the increase in COVID cases". They started to monitor and it was noted yesterday and today that pt's HR was 110s-130s and his pulse ox was 88-96. Pt has not eaten in the last two days due to nausea. No emesis. When he continued to feel unwell, he came to the ED. Pt denies fever, chest pain, abd pain, LE pain or swelling. Pt denies SOB until he was told in the ED that he was COVID + "and I think I just got nervous". Denies loss of taste or smell. Pt says when he told his roommate about his dx, she told him that today she noted loss of taste and smell. He has not been working due to COVID. No travel. No sick contacts. Pt was started on IVF and abx in the ED. He states that his nausea has resolved and he was able to eat all of the dinner brought to him in the ED. Pt states he has been a byrd of the [facility] since he was 8 y/o and does not know his FH. Principal Diagnosis COVID-19 Acute respiratory failure with hypoxia Discharge Exam Constitutional WD/WN, vitals as above + obese Eyes + anicteric sclerae Neck trachea midline, no thyromegaly Respiratory normal respiratory effort, lungs clear to auscultation Cardiovascular RRR, no murmur, no edema Extremities: no calf tenderness Chest (Breasts) Chest: normal inspection of chest Gastrointestinal (Abdomen) normal bowel sounds, soft, nontender, no hepatosplenomegaly Musculoskeletal Extremities: extremities normal to inspection; no cyanosis and no clubbing Skin no rashes, warm and dry Neurologic moves all extremities and awake; no focal motor deficits Psychiatric A+Ox3, euthymic affect Lymphatic no lymphedema Discharge Data Allergies Allergy/AdvReac Type Severity Reaction Status Date / Time onion Allergy Severe ANAPHYLAXIS Verified 01/13/20 14:31 Consultations 01/13/20 16:15 ED Decision to Admit Stat 01/13/20 21:20 Consult Case Management - Discharge Planning Routine Ordered Studies CXR x 2 Hospital Course (1) Coronavirus infection: COVID + in the ED, flu negative Continue isolation precautions Upon admission, O2 sats 93-97% on RA, but then hypoxia worsened down to 84 % on room air-was requiring 2 L nasal cannula Now weaned off oxygen since 01/17 and pulse ox 91-94% on RA with exertion in the room, much improved Fevers and sinus tachycardia both resolved With bilateral subtle interstitial infiltrates on chest x-ray initially and then repeat chest x-ray on 01/16 significantly worse despite being clinically improved. With elevated d-dimer, CRP, mildly elevated transaminases, leukopenia and thrombocytopenia all consistent with COVID. These laboratory values are all improving at this time Pt with no hx of tobacco use or underlying lung disease Most concerning risk factor for poor prognosis with COVID dx is morbid obesity Given development of severe COVID with worsening hypoxia, discussed case with pulmonology and was started on a course of remdesivir and dexamethasone. -Has now completed a 5-day course of Remdesivir -Continue dexamethasone 6 mg p.o. once daily starting on 01/13 x 10-day course, can continue at home -Has now been weaned off oxygen -Continue Robitussin-DM 10 mL's p.o. every 6 hours as needed for cough -Continue Combivent inhaler 1 puff 4 times daily for bronchospasm as this is really helping -CXR shows worsening infiltrates but likely was just lagging behind his illness -stable for dc to home (2) Acute respiratory failure with hypoxia: As above, secondary to COVID, now resolved (3) Multifocal pneumonia: As noted above on chest x-ray, most likely secondary to COVID and not true bacterial infection -procalcitonin is negative x2-have since discontinued Rocephin (4) Thrombocytopenia: Platelets down to 110 at the dani, secondary to COVID infection, now normal (5) Obesity: BMI 37.5 Needs encouragement for weight loss (6) Elevated blood pressure reading: Blood pressures quite elevated at times initially, could be underlying hypertension as he reports elevated blood pressures in the past Now improved (7) Leukopenia: Secondary to COVID, resolved (8) Bipolar II disorder: States currently untx due to no PCP, psych care, or insurance (9) DVT prophylaxis: Patient declined injections for DVT prophylaxis, however stressed that he is at high risk for VTE in the setting of COVID He was agreeable to taking the DVT prophylaxis dose of Xarelto 10 mg p.o. once daily, some evidence to stay on this as outpatient-but he has no health insurance and will be costly Disposition-dc to home Total Time Total Time Spent Total Time Spent (In Minutes): >30 min Total Time Includes: Examination of the Patient, Discharge Planning and Medication Reconciliation Discharge Plan Discharge Items Patient Disposition: Home - Self-Care Reason For Visit: PNA,COVID Discharge Diagnosis: COVID-19, Acute respiratory failure with hypoxia Condition on Discharge: Good Activity: As commented below Lifting: Gradually increase as tolerated Bathing: No limitations Exercise/Sports: Gradually increase as tolerated Weightbearing: Full weightbearing Non-emergency contact: Primary Care Provider Call non-emergency contact if: you have any medication questions, your symptoms worsen and you have a fever Follow-up/Referrals: [facility] [Outside] (Please call for a hospital follow up appointment in 2 weeks) PCP,NO [Primary Care Provider] - Diet: Regular Addtl Attending Provider Instructions: Please finish out the course of the dexamethasone. You can use the inhalers 1 puff each, four times a day, as needed for cough. If you develop worsening shortness of breath, recurrent fevers, or any worsening symptoms, please return immediately to the hospital. Home Isolation COVID-19 Instructions The following information about Home Isolation is from the CDC Website: https://www.cdc.gov/coronavirus/2019-ncov/hcp/qtbdxysj-aznxcjg-lfcubg.html Stay home except to get medical care People who are mildly ill with COVID-19 are able to isolate at home during their illness. You should restrict activities outside your home, except for getting medical care. Do not go to work, school, or public areas. Avoid using public transportation, ride-sharing, or taxis. Separate yourself from other people and animals in your home People: As much as possible, you should stay in a specific room and away from other people in your home. Also, you should use a separate bathroom, if available. Animals: You should restrict contact with pets and other animals while you are sick with COVID-19, just like you would around other people. Although there have not been reports of pets or other animals becoming sick with COVID-19, it is still recommended that people sick with COVID-19 limit contact with animals until more information is known about the virus. When possible, have another member of your household care for your animals while you are sick. If you are sick with COVID-19, avoid contact with your pet, including petting, snuggling, being kissed or licked, and sharing food. If you must care for your pet or be around animals while you are sick, wash your hands before and after you interact with pets and wear a face mask. Call ahead before visiting your doctor If you have a medical appointment, call the healthcare provider and tell them that you have or may have COVID-19. This will help the healthcare providers office take steps to keep other people from getting infected or exposed. Wear a face mask You should wear a face mask when you are around other people (e.g., sharing a room or vehicle) or pets and before you enter a healthcare providers office. If you are not able to wear a face mask (for example, because it causes trouble breathing), then people who live with you should not stay in the same room with you, or they should wear a face mask if they enter your room. Cover your coughs and sneezes Cover your mouth and nose with a tissue when you cough or sneeze. Throw used tissues in a lined trash can. Immediately wash your hands with soap and water for at least 20 seconds or, if soap and water are not available, clean your hands with an alcohol-based hand carbon brusher assembler that contains at least 60% alcohol. Clean your hands often Wash your hands often with soap and water for at least 20 seconds, especially after blowing your nose, coughing, or sneezing; going to the bathroom; and before eating or preparing food. If soap and water are not readily available, use an alcohol-based hand carbon brusher assembler with at least 60% alcohol, covering all surfaces of your hands and rubbing them together until they feel dry. Soap and water are the best option if hands are visibly dirty. Avoid touching your eyes, nose, and mouth with unwashed hands. Avoid sharing personal household items You should not share dishes, drinking glasses, cups, eating utensils, towels, or bedding with other people or pets in your home. After using these items, they should be washed thoroughly with soap and water. Clean all high-touch surfaces everyday High touch surfaces include counters, tabletops, doorknobs, bathroom fixtures, toilets, phones, keyboards, tablets, and bedside tables. Also, clean any surfaces that may have blood, stool, or body fluids on them. Use a household cleaning spray or wipe, according to the label instructions. Labels contain instructions for safe and effective use of the cleaning product including precautions you should take when applying the product, such as wearing gloves and making sure you have good ventilation during use of the product. Monitor your symptoms Seek prompt medical attention if your illness is worsening (e.g., difficulty breathing).Beforeseeking care, call your healthcare provider and tell them that you have, or are being evaluated for, COVID-19. Put on a face mask before you enter the facility. These steps will help the healthcare providers office to keep other people in the office or waiting room from getting infected or exposed. Ask your healthcare provider to call the local or state health department. Persons who are placed under active monitoring or facilitated self- monitoring should follow instructions provided by their local health department or occupational health professionals, as appropriate. When working with your local health department check their available hours. If you have a medical emergency and need to call 911, notify the dispatch personnel that you have, or are being evaluated for COVID-19. If possible, put on a face mask before emergency medical services arrive. Discontinuing home isolation Patients with confirmed COVID-19 should remain under home isolation precautions until the risk of secondary transmission to others is thought to be low. The decision to discontinue home isolation precautions should be made on a [id number] basis, in consultation with healthcare providers and [facility] and [facility] health departments. Pending Studies at Discharge: No Stand-Alone Forms: [facility], Smoking Cessation Medications and DC Order Prescriptions: New albuterol sulfate [Ventolin HFA] 90 mcg/actuation Hfa Aerosol Inhaler 1 puff inhalation QIDR Qty: 18 RF: 0 Atrovent HFA 17 mcg/actuation Hfa Aerosol Inhaler 1 puff inhalation QIDR Qty: 12.9 RF: 0 dexamethasone 4 mg Tablet 6 mg PO DAILY 4 Days Qty: 6 RF: 0 Robitussin Cough-Chest Haresh DM 5-100 mg/5 mL Liquid 10 ml PO Q6H PRN (Reason: cough) Qty: 118 RF: 0 Continued acetaminophen [Tylenol] 325 mg Tablet 650 mg PO BID RF: 0 ibuprofen 800 mg Tablet 800 mg PO TID PRN (Reason: Pain) RF: 0 Discharge Orders: Discharge Order (Routine); Ordered 01/19/20 Ordered By: Sierra Bales/Other Patient Handouts: COVID-19 Prevention, COVID-19 Home Care, COVID Face Mask Steps, Albuterol inhalation powder, Ipratropium aerosol inhaler, Human Coronaviruses, Caring for Someone Who Has COVID-19, How COVID-19 Spreads, Simple Ways to Avoid COVID-19, Symptoms of COVID-19 Infection Admission Data Admit Date/Time: 01/13/20 20:16 Attending Provider: Sierra Jimenez Admit Provider: Arabella Garrido Primary Care Provider: PCP,NO Other Providers: Arabella Garrido Coding Level of Care Code D/C Day Management >30 mins Diagnoses Coronavirus infection B34.2 Acute respiratory failure with hypoxia J96.01 Multifocal pneumonia J18.9 Thrombocytopenia D69.6 Obesity E66.9 Elevated blood pressure reading R03.0 Leukopenia D72.819 Leukopenia type: unspecified Bipolar II disorder F31.81 DVT prophylaxis Z29.9
== END 2020-01-19 14:06 | disposition home or self-care (01) | DRG 177 ==
LOC: ED 12:42 → SUATTDRO 20:16 → 2S 20:16

== ENCOUNTER 2025-03-09 08:06 | Inpatient (IN) ==
--- NOTE | 2025-03-09 08:19 | Emergency Department Note ---
Impression & Plan Fever, Productive cough, Pneumonia, Acute hypoxemic respiratory failure ED Provider Note HISTORY OF PRESENT ILLNESS: Patient is a 44-year-old male presenting with productive cough and fevers. Patient reports he has been having cycling fevers for the last 6 days. He reports that 6 days ago he had a low-grade fever but over the past 4 days the patient has had a persistently elevated fever around 101. He states that for the last 4 days he has been having a cough productive of a white, green and brown sputum. He states he has been coughing so hard that he gets substernal chest pain that is a 10 out of 10. He reports feeling constantly short of breath since the onset of his cough. He had a negative home COVID test 6 days ago. He denies any recent sick contact exposures, but does report he works in [employer] services so is around people constantly. He denies any DVT or PE history. Denies any history of cardiac stents. Denies any anticoagulation or antiplatelet use. He does report he is also been having recurrent headaches over the last 3 days and diffuse bodyaches. He denies any notable rashes. Denies any known tick bites or tick exposures. He denies any abdominal pain, nausea or vomiting. Denies any dysuria. He reports he has been coughing so hard that the back of his throat hurts and because of his sore throat he has been unable to eat or drink much over the last few days. Patient has not been on any recent antibiotics. Patient reports he last took a dose of aspirin last night for headache. ROS: as above PHYSICAL EXAM: Constitutional: Patient appears in no acute distress. HENT: Head: Normocephalic and atraumatic. Eyes: EOMI, PERRL Mouth/Throat: Mucous membranes moist. Uvula midline. No tonsillar hypertrophy or exudate. Neck: Trachea midline. Neck supple. Cardiovascular: Tachycardic with regular rhythm. No murmurs, rubs or gallops. Intact distal pulses. Pulmonary/Chest: No respiratory distress. Breath sounds clear and equal bilaterally. No wheezes or rales. Abdominal: Abdomen soft, no tenderness, rebound or guarding. Musculoskeletal: No edema, tenderness or deformity noted. Skin: Warm and dry. No rash, erythema, pallor or cyanosis Psychiatric: Appropriate mood and affect for situation. Neurological: Alert and keenly responsive. CN II-XII grossly intact, moving all extremities equally and fully. MDM: - Vitals signs showed tachycardia - History obtained via patient. History as above. - Chronic conditions affecting care: Bipolar disorder - Differential diagnoses include, but are not limited to: Congestive heart failure; acute coronary syndrome; COPD/asthma exacerbation; pulmonary edema; pulmonary embolism; pneumonia; pneumothorax; viral syndrome - Order placed for continuous cardiac monitoring. At this time, monitor showed rate of 97 bpm with normal sinus rhythm, per my interpretation. - External medical records reviewed. Discharge summary dated 01/18/2021 was reviewed. Patient was admitted for acute respiratory failure with hypoxia secondary to COVID-19. - EKG image interpreted by myself showed normal sinus rhythm. Rate tachycardic at 121 bpm. QT 332. No acute ischemic changes. - Laboratory workup interpreted by myself showed leukocytosis (WBC 13.70) with neutrophil predominance; slight hyponatremia (Na 134); normal troponin; normal AST/ALT; elevated total bilirubin (1.3) - CXR image reviewed by myself was negative for pneumonia, per my interpretation. - Viral respiratory panel negative - CT PE negative for PE. Noted to have bilateral lower lobe bronchial wall thickening and bilateral lower lobe ground glass opacities concerning for atelectasis versus infectious etiology. - Patient noted to have multiple episodes of hypoxia in the emergency department. He would desaturate to 86% on room air. He was placed on 2 L nasal cannula for supplemental oxygenation. - Patient noted to have a fever in the ER. Given 1 L normal saline and 1 g IV Tylenol. Given his new oxygen requirement in the setting of his fevers, will treat for pneumonia. Given 2 g IV Rocephin and 500 mg p.o. azithromycin. Also given 60 mg of IV Solu-Medrol - Discussion was had with patient case manager about patient's case and need for admission - Hospitalist, Dr. Ceron, consulted for admission at 10:50 am - [facility] for further evaluation and management. ASSESSMENT AND PLAN: Diagnosis: Fever; productive cough; acute hypoxic respiratory failure; pneumonia Plan: admit Past Med/Surg History Problem List (Updated 03/09/25 @ 10:42 by Nanci García MD) Acute hypoxemic respiratory failure (Acute) Pneumonia (Acute) Productive cough (Acute) Fever (Acute) Elevated blood pressure reading Obesity Coronavirus infection (Acute) Multifocal pneumonia (Acute) Bipolar II disorder (Chronic) Medical History Bipolar II disorder Migraine Obesity Surgical History No significant past surgical history Social History Smoking Status: Current some day smoker Tobacco Type: E-cigarettes / Vaping Second Hand Exposure: No; Do You Dip or Chew Tobacco: No; Hx Alcohol Use: Yes Alcohol type: beer Hx Substance Use: No Preferred Language: Turkish Communication Ability: Effective Visual Impairment: No Limitations Temperer Required: No Beliefs That Will Affect Care: None marital status: Single Current Living Situation: Other Current Living Situation Comment: friend current occupational status: employed Feels Safe at Home: Yes Assistive Devices: Glasses Allergies Allergies Allergy/AdvReac Type Severity Reaction Status Date / Time onion Allergy Severe ANAPHYLAXIS Verified 03/09/25 10:13 Home Meds Home Medications Medication Instructions Recorded Confirmed ibuprofen 200 mg tablet 800 mg PO BID PRN Pain 01/22/21 03/09/25 acetaminophen 500 mg tablet 500 mg PO Q6H PRN Pain 03/09/25 03/09/25 naproxen sodium 220 mg tablet 220 mg PO BID PRN Pain 03/09/25 03/09/25 (Aleve) Results & Data (ED) Vital Signs Vital Signs - 24 hr 03/09/25 08:11 03/09/25 09:00 03/09/25 09:00 Temperature 37.1 C 37.6 C H Temperature Source Oral Oral Pulse Rate 128 H 110 H Pulse Rate [Apical] 112 H Respiratory Rate 20 22 22 Respiratory Effort / Characteristics Non-Labored Spontaneous Respiratory Depth Normal Blood Pressure 137/87 Blood Pressure [Right Arm] 145/102 H Blood Pressure Mean 103 Blood Pressure Mean [Right Arm] 116 Blood Pressure Position [Right Arm] Semi-fowlers Pulse Oximetry 95 95 95 Oxygen Delivery Method Room Air Room Air Room Air Oxygen Flow Rate Sepsis Recent Fever Within 48 Hours Yes Sepsis New/Unexplained Change in Mental Status No Sepsis Action Taken by Nursing No Action Required 03/09/25 09:03 03/09/25 09:30 03/09/25 10:00 Temperature 37.1 C 37.1 C Temperature Source Oral Oral Pulse Rate 117 H Pulse Rate [Apical] 102 H Respiratory Rate 18 20 Respiratory Effort / Characteristics Respiratory Depth Blood Pressure Blood Pressure [Right Arm] 138/99 138/99 Blood Pressure Mean Blood Pressure Mean [Right Arm] 112 112 Blood Pressure Position [Right Arm] Semi-fowlers Semi-fowlers Pulse Oximetry 94 94 Oxygen Delivery Method Room Air Room Air Oxygen Flow Rate Sepsis Recent Fever Within 48 Hours Sepsis New/Unexplained Change in Mental Status Sepsis Action Taken by Nursing 03/09/25 10:29 Temperature Temperature Source Pulse Rate 97 H Pulse Rate [Apical] Respiratory Rate 20 Respiratory Effort / Characteristics Respiratory Depth Blood Pressure Blood Pressure [Right Arm] Blood Pressure Mean Blood Pressure Mean [Right Arm] Blood Pressure Position [Right Arm] Pulse Oximetry 95 Oxygen Delivery Method Room Air Oxygen Flow Rate 2 Sepsis Recent Fever Within 48 Hours Sepsis New/Unexplained Change in Mental Status Sepsis Action Taken by Nursing Laboratory Data 03/09/25 08:50 03/09/25 08:50 Lab Results 03/09/25 03/09/25 Range/Units 08:45 08:50 WBC 13.70 H (4.8-10.8) K/ul RBC 5.65 (4.70-6.10) M/uL Hgb 14.9 (14.0-18.0) g/dl Hct 45.3 (42.0-52.0) % MCV 80.2 (80.0-100.0) fL MCH 26.4 (25.0-34.0) pg MCHC 32.9 (32.0-36.0) g/dL RDW Std Deviation 39.8 (36.4-46.3) fL RDW Coeff of Anastasia 13.7 (11.5-14.5) % Plt Count 248 (130-400) K/uL MPV 11.4 (9.4-12.4) fL Immature Gran % (Auto) 0.9 % Neut % (Auto) 78.5 % Lymph % (Auto) 10.9 % [place] % (Auto) 9.1 % Eos % (Auto) 0.2 % Baso % (Auto) 0.4 % Neut # (Auto) 10.75 H (1.40-6.50) K/uL Lymph # (Auto) 1.50 (1.20-3.40) K/uL [place] # (Auto) 1.24 H (0.11-0.59) K/uL Eos # (Auto) 0.03 (0.00-0.50) K/uL Baso # (Auto) 0.05 (0.00-0.20) K/uL Immature Gran # (Auto) 0.13 (0.01-0.20) K/uL Sodium 134 L (136-145) mmol/L Potassium 4.1 (3.5-5.1) mmol/L Chloride 101 (98-107) mmol/L Carbon Dioxide 24 (21-32) mmol/L Anion Gap 9 (3-11) BUN 8 (6-23) mg/dl Creatinine 0.67 (0.6-1.4) mg/dl Est Cr Clr Drug Dosing 189.1 ml/min eGFR 117.34 BUN/Creatinine Ratio 11.9 (10-20) Glucose 193 H (70-99(Fasting)) mg/dl Calcium 9.0 (8.6-10.3) mg/dl Magnesium 1.9 (1.7-2.4) mg/dl Total Bilirubin 1.3 H (0.2-1.0) mg/dl AST 19 (13-39) U/L ALT 29 (7-52) U/L Alkaline Phosphatase 100 (34-104) U/L Troponin I High Sens 5.8 (0-20) pg/ml Total Protein 8.1 (6.0-8.3) gm/dl Albumin 3.9 (3.4-5.0) gm/dl Globulin 4.2 H (2.5-4.0) gm/dl Albumin/Globulin Ratio 0.9 (0.9-2) Adenovirus (PCR) Not Detected (NotDetected) B. pertussis DNA (PCR) Not Detected (NotDetected) B.parapertussis DNA PCR Not Detected (NotDetected) C. pneumoniae DNA (PCR) Not Detected (NotDetected) Coronavirus OC43 (PCR) Not Detected (NotDetected) Coronavirus HKU1 (PCR) Not Detected (NotDetected) Coronavirus 229E (PCR) Not Detected (NotDetected) SARS-CoV-2 (PCR) Not Detected (NotDetected) Coronavirus NL63 (PCR) Not Detected (NotDetected) Human Metapneumovir PCR Not Detected (NotDetected) Influenza Type A (PCR) Not Detected (NotDetected) Influenza Type B (PCR) Not Detected (NotDetected) M. pneumoniae (PCR) Not Detected (NotDetected) Parainfluenza 1 (PCR) Not Detected (NotDetected) Parainfluenza 2 (PCR) Not Detected (NotDetected) Parainfluenza 3 (PCR) Not Detected (NotDetected) Parainfluenza 4 (PCR) Not Detected (NotDetected) RSV (PCR) Not Detected (NotDetected) Entero/Rhino (PCR) Not Detected (NotDetected) Administered Medications Discontinued Medications Sodium Chloride (Nss) 1,000 mls @ 999 mls/hr IV .Q1H1M ONE Stop: 03/09/25 09:18 Last Infusion: 03/09/25 09:36 Dose: Infused Documented By: aiyana Admin: 03/09/25 08:59 Dose: 999 mls/hr Documented By: aiyana Acetaminophen (Ofirmev) 1,000 mg in 100 mls @ 400 mls/hr IV NOW STA Stop: 03/09/25 08:43 Last Infusion: 03/09/25 09:36 Dose: Infused Documented By: amnydia Admin: 03/09/25 08:57 Dose: 400 mls/hr Documented By: aiyana Ioversol (Optiray 320 125ml) 112 ml IV ONCE ONE Stop: 03/09/25 09:41 Last Admin: 03/09/25 09:40 Dose: 112 ml Documented By: [facility] [place] Imaging Data Radiologist's Impression: Chest X-Ray 03/09/25 08:17 XR chest 2V PA/lateral CLINICAL HISTORY: Cough. COMPARISON STUDY: Chest radiograph January 22, 2021. FINDINGS: Lung volumes are normal. Lungs are clear. There is no pneumothorax or pleural effusion. The cardiomediastinal silhouette is stable. There is no evidence for pulmonary edema. IMPRESSION: No acute cardiopulmonary findings. No change in appearance of the chest. ACT 112: Negative or not required by law. Electronically signed by: Bipin Burch M.D. 03/09/2025 9:16 AM Chest CTA 03/09/25 08:29 CT ANGIOGRAM OF THE CHEST CLINICAL HISTORY: Cough. Fever. COMPARISON STUDY: Chest radiograph performed earlier today. Chest radiograph January 22, 2021. TECHNIQUE: Following the IV administration of 112 cc of Optiray 320, CT angiogram of the chest was performed from the upper abdomen to the thoracic inlet utilizing the pulmonary embolus protocol. Images are reviewed in the axial, sagittal, and coronal planes. 3-D MIPS images are created and assessed. IV contrast was administered without complication. A dose lowering technique was utilized adhering to the principles of ALARA. CT DOSE: 937.44 mGy.cm FINDINGS: No pulmonary emboli are identified. The heart is mildly enlarged. There is no thoracic aortic dissection. No enlarged mediastinal or axillary lymph nodes are present. Prominent bilateral hilar lymph nodes are likely benign. There is no pneumothorax or pleural effusion. There is no consolidation to suggest pneumonia. Bilateral lower lobe bronchial wall thickening is noted. Lower lobe groundglass opacities favor atelectasis although a mild infectious process could appear similar. Visualized portions of the upper abdomen demonstrate hepatic steatosis. IMPRESSION: 1. No pulmonary emboli identified. 2. Bilateral lower lobe bronchial wall thickening. Mild bilateral lower lobe groundglass opacities favor atelectasis although a mild infectious process could appear similar. No consolidation. 3. Mild cardiomegaly. 4. Hepatic steatosis. ACT 112: Negative or not required by law. Electronically signed by: Bipin Burch M.D. 03/09/2025 10:00 AM Discharge Plan Visit Data Chief Complaint: Flu Like Symptoms Stated Complaint: FEVER COMES/GOES, PRODUCTIVE COUGH SINCE 03/04,03/05 ED Provider: Nanci García Discharge Problem: Fever, Productive cough, Pneumonia, Acute hypoxemic respiratory failure Condition: Fair Forms Stand Alone Forms: [facility] [place] [employer] Prescriptions Prescriptions: No Action ibuprofen 200 mg Tablet 800 mg PO BID PRN (Reason: Pain) acetaminophen [Tylenol Ex Str Rapid Release] 500 mg Tablet 500 mg PO Q6H PRN (Reason: Pain) naproxen sodium [Aleve] 220 mg Tablet 220 mg PO BID PRN (Reason: Pain) Referrals Referrals: PCP,NO [Primary Care Provider] -
[2025-03-09] MEDS: ACETAMINOPHEN 1,000 MG/100 ML VIAL IV STA (08:57)
[2025-03-09] MEDS: SODIUM CHLORIDE 0.9% 1,000 ML IV ONE (08:59)
[2025-03-09 09:05] LABS: Hematocrit (blood only) 45.3 % (42.0-52.0); Hemoglobin 14.9 g/dl (14.0-18.0); Immature Granulocytes # (auto) 0.13 K/uL (0.01-0.20); Immature Granulocytes % (auto) 0.9 %; Mean Corpuscular Hemoglobin 26.4 pg (25.0-34.0); Mean Corpuscular Volume 80.2 fL (80.0-100.0); Platelet Count 248 K/uL (130-400); RDW Standard Deviation 39.8 fL (36.4-46.3); Red Blood Count 5.65 M/uL (4.70-6.10); White Blood Count 13.70 K/ul (4.8-10.8)
--- NOTE | 2025-03-09 09:17 | XRay Report ---
XR chest 2V PA/lateral CLINICAL HISTORY: Cough. COMPARISON STUDY: Chest radiograph January 22, 2021. FINDINGS: Lung volumes are normal. Lungs are clear. There is no pneumothorax or pleural effusion. The cardiomediastinal silhouette is stable. There is no evidence for pulmonary edema. IMPRESSION: No acute cardiopulmonary findings. No change in appearance of the chest. ACT 112: Negative or not required by law. Electronically signed by: Bipin Burch M.D. 03/09/2025 9:16 AM
[2025-03-09 09:23] LABS: Alanine Aminotransferase 29.0 U/L (7-52); Albumin Globulin Ratio 0.9 (0.9-2); Alkaline Phosphatase 100.0 U/L (34-104); Anion Gap 9.0 (3-11); Bilirubin,Total 1.3 mg/dl (0.2-1.0); Blood Urea Nitrogen 8.0 mg/dl (6-23); Calcium 9.0 mg/dl (8.6-10.3); Carbon Dioxide 24.0 mmol/L (21-32); Chloride 101.0 mmol/L (98-107); Creatinine Clr Calc Pharmacy 189.1 ml/min; Globulin 4.2 gm/dl (2.5-4.0); Glucose 193.0 mg/dl (70-99(Fasting)); Magnesium 1.9 mg/dl (1.7-2.4); Potassium 4.1 mmol/L (3.5-5.1); Sodium 134.0 mmol/L (136-145); Total Protein 8.1 gm/dl (6.0-8.3)
[2025-03-09] MEDS: OPTIRAY 320 125ml IV ONE (09:40)
[2025-03-09 10:00] LABS: Chlamydia pneumoniae PCR Not Detected (NotDetected); Coronavirus 229E PCR Not Detected (NotDetected); Coronavirus CoV-2 (COVID19)PCR Not Detected (NotDetected); Coronavirus HKU1 PCR Not Detected (NotDetected); Coronavirus NL63 PCR Not Detected (NotDetected); Coronavirus OC43PCR Not Detected (NotDetected); Human Metapneumovirus PCR Not Detected (NotDetected); Parainfluenza Virus 1 PCR Not Detected (NotDetected); Parainfluenza Virus 2 PCR Not Detected (NotDetected); Parainfluenza Virus 3 PCR Not Detected (NotDetected); Parainfluenza Virus 4 PCR Not Detected (NotDetected); Respiratory Syncytial VirusPCR Not Detected (NotDetected); Rhinovirus/Enterovirus PCR Not Detected (NotDetected)
--- NOTE | 2025-03-09 10:02 | CT Scan Report ---
CT ANGIOGRAM OF THE CHEST CLINICAL HISTORY: Cough. Fever. COMPARISON STUDY: Chest radiograph performed earlier today. Chest radiograph January 22, 2021. TECHNIQUE: Following the IV administration of 112 cc of Optiray 320, CT angiogram of the chest was pe rformed from the upper abdomen to the thoracic inlet utilizing the pulmonary embolus protocol. Images are reviewed in the axial, sagittal, and coronal planes. 3-D MIPS images are created and assessed. I V contrast was administered without complication. A dose lowering technique was utilized adhering to the principles of ALARA. CT DOSE: 937.44 mGy.cm FINDINGS: No pulmonary emboli are identified. The heart is mildly enlarged. There is no thoracic aort ic dissection. No enlarged mediastinal or axillary lymph nodes are present. Prominent bilateral hilar lymph nodes are likely benign. There is no pneumothorax or pleural effusion. There is no consolidati on to suggest pneumonia. Bilateral lower lobe bronchial wall thickening is noted. Lower lobe groundgl ass opacities favor atelectasis although a mild infectious process could appear similar. Visualized p ortions of the upper abdomen demonstrate hepatic steatosis. IMPRESSION: 1. No pulmonary emboli identified. 2. Bilateral lower lobe bronchial wall thickening. Mild bilateral lower lobe groundglass opacities fa vor atelectasis although a mild infectious process could appear similar. No consolidation. 3. Mild cardiomegaly. 4. Hepatic steatosis. ACT 112: Negative or not required by law. Electronically signed by: Bipin Burch M.D. 03/09/2025 10:00 AM
[2025-03-09] MEDS: AZITHROMYCIN 250 MG TAB PO ONE (10:54)
--- NOTE | 2025-03-09 10:56 | Electrocardiogram Report ---
Test Reason : Blood Pressure : */* mmHG Vent. Rate : 121 BPM Atrial Rate : 121 BPM P-R Int : 140 ms QRS Dur : 98 ms QT Int : 332 ms P-R-T Axes : 52 -7 45 degrees QTcB Int : 471 ms Sinus tachycardia Otherwise normal ECG When compared with ECG of 22-Jan-2021 18:32, No significant change was found Confirmed by Raymundo Park ([id number]) on 03/09/2025 10:56:09 AM Referred By: REFERRED SELF Confirmed By: Raymundo Park
[2025-03-09] MEDS: cefTRIAXone SODIUM 2,000 MG/50 ML BAG IV STA (11:03)
--- NOTE | 2025-03-09 11:03 | History & Physical Report ---
Date of Service March 09, 2025 Assessment & Plan (1) Acute hypoxemic respiratory failure: Plan: Patient admittd to medical for pneumonia. Patient will be placed on rocephin and azithromycin. WIll monitor. Patient currently requiring oxygen. Reviewed images. Patient on repeat visit is showing improvement, which leads to the thought that this truly is a bacterial pneumonia. (2) Pneumonia: Plan: as noted above (3) Obesity: Plan: recommend lifestyle changes (4) Bipolar II disorder: Plan: history of this. Patient not on any medications History of Present Illness Primary Care Provider: BEATRIZ PCP 44 yo male repsents to the hospital with a 3 day history of SOB. Patient reports this began earlier in the week, with generalized malaise and productive cough. And slowly got worse. He thought this was a viral illness, but as his coughing got worse with worsening weakness, and subjective fevers, patient decided to go to the hospital. In the ED patient was found to be hypoxic. Allergies Allergy/AdvReac Type Severity Reaction Status Date / Time onion Allergy Severe ANAPHYLAXIS Verified 03/09/25 10:13 Home Medications Medication Instructions Recorded Confirmed Type ibuprofen 200 mg tablet 800 mg PO BID PRN Pain 01/22/21 03/09/25 History acetaminophen 500 mg tablet 500 mg PO Q6H PRN Pain 03/09/25 03/09/25 History naproxen sodium 220 mg tablet 220 mg PO BID PRN Pain 03/09/25 03/09/25 History (Aleve) Past Med/Surg History Problem List Acute hypoxemic respiratory failure (Acute) Pneumonia (Acute) Productive cough (Acute) Fever (Acute) Elevated blood pressure reading Obesity Coronavirus infection (Acute) Multifocal pneumonia (Acute) Bipolar II disorder (Chronic) Surgical History No significant past surgical history Social History Smoking Status: Current some day smoker Tobacco Type: E-cigarettes / Vaping Second Hand Exposure: No; Do You Dip or Chew Tobacco: No; Tobacco Cessation Education Requested by Patient: No Hx Alcohol Use: No Hx Substance Use: No Preferred Language: Greenlandic Communication Ability: Effective Visual Impairment: No Limitations Shank Sander Required: No Beliefs That Will Affect Care: None marital status: Single Current Living Situation: Other Current Living Situation Comment: Friend current occupational status: employed Other Information That Helps Us Care for You: No Feels Safe at Home: Yes Safety Concerns: Feels Safe At This Time Assistive Devices: Glasses Review of Systems Constitutional: no fever Eyes: no blind spots Ear, Nose, Mouth, Throat: no ear pain Respiratory: + cough Cardiovascular: no chest pain Gastrointestinal: no abdominal pain Genitourinary: no dysuria Musculoskeletal: no back pain Integumentary: no acne Neurologic: no gait abnormality Psychiatric: no behavioral changes Endocrine: no fatigue Hematologic / Lymphatic: no easy bleeding Allergy / Immunological: no GI upset with certain foods Physical Exam Constitutional: WD/WN, vitals as above Eyes: PERRL, conjunctivae normal, anicteric sclerae ENMT: external ear and nose normal, oropharynx normal Neck: trachea midline, no thyromegaly Respiratory: + labored breathing, + uses accessory mu scles and + cough rhonchi heard more on right Cardiovascular: RRR, no murmur, no edema Gastrointestinal (Abdomen): normal bowel sounds, soft, nontender, no hepatosplenomegaly Musculoskeletal: no cyanosis or clubbing, extremities motor strength 5/5 Skin: no rashes, warm and dry Neurologic: PERRL, EOMI, accommodation nl, no face palsy, no dysarthria Psychiatric: A+Ox3, euthymic affect Lymphatic: no cervical or axillary lymphadenopathy Results & Data Results & Data Vital Signs (Past 12 Hours) Vital Signs Temp Pulse Pulse Resp BP BP Pulse Ox 03/09/25 10:29 97 H 20 95 03/09/25 10:00 37.1 C 102 H 20 138/99 94 03/09/25 09:30 37.1 C 18 138/99 94 03/09/25 09:03 117 H 03/09/25 09:00 110 H 22 95 03/09/25 09:00 37.6 C H 112 H 22 145/102 H 95 03/09/25 08:11 37.1 C 128 H 20 137/87 95 O2 Del Method O2 Flow Rate 03/09/25 10:29 Room Air 2 03/09/25 10:00 Room Air 03/09/25 09:30 Room Air 03/09/25 09:03 03/09/25 09:00 Room Air 03/09/25 09:00 Room Air 03/09/25 08:11 Room Air PG Care Time/CCT Total # of Minutes Spent Total Time Spent with Patient: Total time spent is greater than 50% in coordination of care (as documented) at patient's floor/unit and/or counseling patient: Coding Level of Care Code 54543 INT INP/OBS CARE 3/75MIN Diagnoses Acute hypoxemic respiratory failure J96.01 Pneumonia J18.9 Obesity E66.9 Bipolar II disorder F31.81
[2025-03-09 13:46] LABS: Appearance Urine Clear (Clear); Bacteria Urine Automated None Seen (None Seen); Cast Urine Automated 0-2 /lpf (0-2); Epithelial Cell Urine Auto 0-2 /hpf (0-2); Glucose Urine UA 3+ (Negative); RBC Urine Automated 0-2 /hpf (0-2); WBC Urine Automated 0-5 /hpf (0-5)
[2025-03-09 23:13] VITALS: RESP 18
[2025-03-10 08:02] LABS: Hematocrit (blood only) 44.4 % (42.0-52.0); Hemoglobin 14.8 g/dl (14.0-18.0); Immature Granulocytes # (auto) 0.18 K/uL (0.01-0.20); Immature Granulocytes % (auto) 1.5 %; Mean Corpuscular Hemoglobin 27.5 pg (25.0-34.0); Mean Corpuscular Volume 82.4 fL (80.0-100.0); Platelet Count 259 K/uL (130-400); RDW Standard Deviation 41.5 fL (36.4-46.3); Red Blood Count 5.39 M/uL (4.70-6.10); White Blood Count 11.92 K/ul (4.8-10.8)
[2025-03-10 08:15] LABS: Anion Gap 7.0 (3-11); Blood Urea Nitrogen 15.0 mg/dl (6-23); Calcium 9.1 mg/dl (8.6-10.3); Carbon Dioxide 27.0 mmol/L (21-32); Chloride 103.0 mmol/L (98-107); Creatinine Clr Calc Pharmacy 216.9 ml/min; Glucose 194.0 mg/dl (70-99(Fasting)); Magnesium 2.3 mg/dl (1.7-2.4); Potassium 4.1 mmol/L (3.5-5.1); Sodium 137.0 mmol/L (136-145)
[2025-03-10] MEDS: AZITHROMYCIN 250 MG TAB PO SCH (08:19)
[2025-03-10] MEDS: cefTRIAXone SODIUM 2,000 MG/50 ML BAG IV SCH (09:40)
[2025-03-10] MEDS: ENOXAPARIN INJ 40 MG/0.4 ML SYR SQ SCH (09:48)
[2025-03-10 15:06] VITALS: BP 126/76; TEMP 97.9; O2SAT 95
--- NOTE | 2025-03-10 17:08 | Discharge Summary ---
Discharge Summary Date of Service March 10, 2025 Principal Dx & Hospital Course #1 = Principal Diagnosis (1) Acute hypoxemic respiratory failure: Patient admitted to medical for bacterial pneumonia. Patient placed on rocephin and azithromycin. Patient initially required oxygen. Patient weaned off. Patient improved the day after admission and was discharged on oral antibiotics. Reviewed images. (2) Pneumonia: as noted above (3) Obesity: recommend lifestyle changes (4) Bipolar II disorder: history of this. Patient not on any medications Admission HPI Per Admitting Provider 44 yo male repsents to the hospital with a 3 day history of SOB. Patient reports this began earlier in the week, with generalized malaise and productive cough. And slowly got worse. He thought this was a viral illness, but as his coughing got worse with worsening weakness, and subjective fevers, patient decided to go to the hospital. In the ED patient was found to be hypoxic. Discharge Exam Constitutional WD/WN, vitals as above Eyes PERRL, conjunctivae normal, anicteric sclerae ENMT external ear and nose normal, oropharynx normal Neck trachea midline, no thyromegaly Respiratory normal respiratory effort (improved breath sounds) Cardiovascular RRR, no murmur, no edema Gastrointestinal (Abdomen) normal bowel sounds, soft, nontender, no hepatosplenomegaly Musculoskeletal no cyanosis or clubbing, extremities motor strength 5/5 Skin no rashes, warm and dry Neurologic PERRL, EOMI, accommodation nl, no face palsy, no dysarthria Psychiatric A+Ox3, euthymic affect Lymphatic no cervical or axillary lymphadenopathy Discharge Plan Discharge Items Patient Disposition: Home - Self-Care Reason For Visit: PNEUMONIA Discharge Diagnosis: Pneumonia Condition on Discharge: Fair Activity: Resume your previous activity Non-emergency contact: Primary Care Provider Call non-emergency contact if: you have any medication questions Follow-up/Referrals: PCP,NO [Primary Care Provider] - Diet: Regular Addtl Attending Provider Instructions: Please resume your antibiotics tomorrow morning. Pending Studies at Discharge: No Stand-Alone Forms: [employer], Smoking Cessation Medications and DC Order Prescriptions: New azithromycin 250 mg Tablet 500 mg PO QAM Qty: 1 0RF cefpodoxime 200 mg tablet 200 mg PO BID Qty: 10 0RF Rx Instructions: must administer with a meal/food first dose tomorrow. Continued ibuprofen 200 mg Tablet 800 mg PO BID PRN (Reason: Pain) acetaminophen 500 mg Tablet 500 mg PO Q6H PRN (Reason: Pain) naproxen sodium [Aleve] 220 mg Tablet 220 mg PO BID PRN (Reason: Pain) Discharge Orders: Discharge Order (Routine); Ordered 03/10/25 Ordered By: Carter Ceron Admission Data Admit Date/Time: 03/09/25 10:56 Attending Provider: Carter Ceron Admit Provider: Carter Ceron Primary Care Provider: PCP,NO Other Interventions: Discharge Summary Assessment (RN) Last Done: 03/10/25 17:37 Hospital Stay Data Consultations 03/09/25 10:51 ED Decision to Admit Stat Diagnostic Imagining Performed 03/09/25 08:29 CT for pulmonary embolism PE [CT angio chest PE protocol] Stat Pending Results Patient Have Any Pending Studies at Discharge: No Discharge Instructions Given to Patient (Per Discharging Provider) Please resume your antibiotics tomorrow morning. Total Time Total Time Spent Total Time Spent (In Minutes): 32 Coding Level of Care Code 04895 INP/OBS DISCH >30 MIN Diagnoses Acute hypoxemic respiratory failure J96.01 Pneumonia J18.9 Obesity E66.9 Bipolar II disorder F31.81
[2025-03-10 17:40] VITALS: PULSE 103
== END 2025-03-10 18:37 | disposition home or self-care (01) | DRG 193 ==
LOC: ED 08:06 → EDINP 10:56 → 3N 14:56